=== PATIENT | female | born 1960 | race Caucasian/White ===

== ENCOUNTER → 2017-06-25 | Outpatient (CLI) | payer MEDICAID ==
[~2017-06-25] MED LIST: ASPIRIN 81MG TA81 MG PO; AUGMENTIN1 TA2 PO; BUSPIRONE HCL10 MG PO; CETIRIZINE HCL10 MG PO; CIPRO 500MG TA500 MG PO; CLOPIDOGREL75 MG PO; FLOVENT DI50 MCG/ACT IH; FLUOXETINE20 MG PO; HYDROCHLOROTH12.5 M1 PO; ISOSORBIDE DINI30 MG PO; KLOR-CON M2020 MEQ PO; LIPITOR80 MG PO; PANTOPRAZOLE SO40 MG PO; PRAMIPEXOLE D0.25 MG PO; PREDNISONE 20MG20 MG PO; TESSALON PERLE100 MG PO; TIZANIDINE HCL 44 MG PO
[2017-06-25 13:45] LABS: BUN 7 mg/dL (7-18)
[2017-06-25 14:02] LABS: GFR (ESTIMATED) 87 ML/MIN (59-)
== END ==
LOC: LAB 13:06
PROVIDERS: Internal Medicine Cardiovascular Disease
DX: I65.23 Occlusion and stenosis of bilateral carotid arteries (principal); I10 Essential (primary) hypertension; E78.5 Hyperlipidemia, unspecified; I63.9 Cerebral infarction, unspecified; R06.09 Other forms of dyspnea; Z82.49 Family history of ischemic heart disease and other diseases of the circulatory system; Z72.0 Tobacco use

== ENCOUNTER 2017-08-24 21:04 | Emergency (ER) | payer MEDICAID ==
[~2017-08-24] VITALS: Ht 162.6 cm; Wt 86.2 kg
--- NOTE | 2017-08-24 21:25 | Emergency Room Report ---
History of Present Illness Time Seen by [id number] Presenting Problem in Triage Pt arrived:Walked Presenting Problem:LEFT ANKLE PAIN AND SWELLING WITH BRUISING, STATES SHE WOKE UP THIS MORNING AND NOTICED, DID NOT HAVE WHEN SHE WENT TO BED. Onset of symptoms date/time:08/2302/04/800 or onset unknown for: Treatment Prior to Arrival: CLINICAL INSTRUCTOR Provided by: Sepsis Risk Assessment: Temp: 98.1 B/P: 141/81 MAP: 101 Pulse: 68 Resp: 18 Recent fever? N Clinical Suspician of Infection? N Mental Status: 1 - Regular (Normal Baseline) Sepsis Risk:Low Sepsis Risk Have you (or family members/close friends) recently traveled outside the [place]? N If Yes, where/when: Have you had exposure to infectious disease within the past month? N TB? Other? Specify: Comment The patient complains of bruising and swelling of her LEFT ankle and LEFT foot. She says she went to bed last night feeling fine, with no bruising or swelling and woke up this morning with bruising and swelling on the lateral aspect of her ankle and a small bruise in the base of her second toe. She recalls no trauma. She says she was able to ambulate well today, but laying in bed tonight it began throbbing up to her knee. She is concerned about a possible blood clot. She does not have a history of thromboembolic disease. She has been evaluated for chest pain recently, had a cardiac cath, accessed through her RIGHT wrist, about a month ago. She says she has a 40 percent blockage and is being treated medically. She is on aspirin and Plavix. She also has a history of chronic obstructive pulmonary disease and has chronic shortness of breath and dyspnea on exertion. ALLERGIES Coded Allergies: alteplase (SWELLING 07/23/16) pregabalin (From LYRICA) (DIZZINESS 07/23/16) shrimp (10/13/16) Home Medications Active Scripts BENZONATATE (Benzonatate) 100 MG PO TID #15 CAP Prov: 10/13/16 Reported Medications ASPIRIN (Aspirin) 81 MG PO DAILY TIZANIDINE HCL (Tizanidine Hcl 4 Mg Tablet) 4 MG PO PRN PRN PAIN Buspirone Hcl (Buspirone 10MG) 7.5 MG PO BID Pantoprazole Sodium (Pantoprazole 40MG) 40 MG PO DAILY CETIRIZINE HCL (Cetirizine 10MG) 10 MG PO DAILY Fluoxetine Hcl (Fluoxetine 20MG) 40 MG PO DAILY Isosorbide Dinitrate 30 MG PO DAILY Atorvastatin Calcium (Atorvastatin) 40 MG PO DAILY Potassium Chloride (Klor-Con M20) 10 MEQ PO DAILY CLOPIDOGREL BISULFATE (Clopidogrel 75MG) 75 MG PO DAILY Fluticasone Propionate (Flovent Diskus 50MCG) 2 PUFF IH BID History Medical History General CAD? No Angina: No AK: No Hypertension? Yes Hyperlipidemia? Yes CHF? No DVT? No PE? No COPD? Yes Asthma? Yes Anemia? No GERD? Yes Gastric ulcers? No GI Bleed? No Hernia? No Thyroid Problems? No Hypothyroidism? No CVA? Yes Seizures? No Diabetes? No Renal Insuffiency? No End Stage Renal Disease? No UTI? No Stones? No BPH? No GB Disease: No Nephritic Syndrome? No Asplenia? No Hepatitis? No Sickle Cell Disease? No Arthritis? No Migraines? No Cataracts? No Glaucoma? No MRSA? No HIV? No TB? No Anxiety? No Depression? No Cancer? No More? 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 LMP N/A Family History Family Hx Diabetes No CAD No Hypertension No Hyperlipidemia No Cancer No TB No Social History Smoking Hx Smoker: Current Every Day Smoker Tobacco: Yes Type Cigarettes Packs/day 1 1/2 - 2 Packs Alcohol Alcohol: No Review of Systems All Other Systems Reviewed and Negative Respiratory see HPI, shortness of breath Cardiovascular see HPI, chest pain Musculoskeletal see HPI, joint pain Physical Exam Vital Signs Vital Signs Date Time Temp Pulse Resp B/P Pulse O2 O2 Flow FiO2 Ox Delivery Rate 08/24 2108 98.1 68 18 141/81 96 General Appearance no apparent distress Respiratory Status No: respiratory distress. Cardiovascular normal peripheral pulses Extremities purple ecchymosis around her LEFT lateral malleolus. Mild edema in anterior to her lateral malleolus in the area of the anterior talofibular ligament. No cords., small 1 CM diameter ecchymosis at the base of her second toe, which is nontender. Toes are normal in color, normal capillary refill, sensation, and warmth., normal pulses, capillary refill, and sensation., no calf tenderness. No cords of the leg or calf. edema is isolated to the area of ecchymosis around the lateral malleolus. There is no generalized edema of the leg, ankle, or foot. Neurologic alert, no motor/sensory deficits Medical Decision Making LABS/Meds/Orders Pt receiving controlled substance in ED? No Results/Orders Orders Procedure Date/time Status ANKLE-LT-3 VIEWS 08/24 2123 Active XRAY/CT/US XRAY/CT/US XRAY ankle Comment X-ray interpreted by Donnie Mujica M.D.: old appearing ossicle at the talonavicular joint on lateral view. Heel spur. No fracture seen. Progress - The patient has ecchymosis and edema which appears traumatic. I do not suspect DVT. Symptoms are classic for an ankle sprain, likely from some unrecognized minor injury. Departure Departure Disposition DC Home or Self Care(routine) Clinical Impression Primary Impression: Ankle bruise Qualifiers: Encounter type: initial encounter Laterality: left Qualified Code: S90.02XA - Contusion of left ankle, initial encounter Secondary Impressions: Ankle edema Condition STABLE Referrals NILAY CHAVEZ (Family) Patient Instructions DI for Hematoma (Bruise) Additional Instructions Ice and elevate for swelling and pain. Tylenol or ibuprofen as needed. Follow-up with primary care physician if increasing swelling or pain. ED Critical Care Critical Care No at [id number]
[2017-08-24 22:29] VITALS: BP 140/66
--- NOTE | 2017-08-25 06:29 | RADIOLOGY REPORT PS360 ---
ANKLE-LT-3 VIEWS HISTORY: SWELLING, PAIN ORDERING PHYSICIAN: Donnie Mujica MD PATIENT AGE: 56 years COMPARISON: None FINDINGS: Small bony density noted at the dorsal and proximal aspect of the navicular and may be due to old avulsion injury versus accessory center of ossification. The joint space is well-preserved. Note obstructive process. No acute findings. Small calcaneal spur. IMPRESSION: No acute finding. Please see above
== END 2017-08-24 22:32 | disposition home or self-care (01) ==
LOC: ER 21:04
DX: S90.02XA Contusion of left ankle, initial encounter (principal); F17.210 Nicotine dependence, cigarettes, uncomplicated; J44.9 Chronic obstructive pulmonary disease, unspecified; Z88.8 Allergy status to other drugs, medicaments and biological substances; Z79.82 Long term (current) use of aspirin; I10 Essential (primary) hypertension; E78.5 Hyperlipidemia, unspecified; K21.9 Gastro-esophageal reflux disease without esophagitis

== ENCOUNTER → 2017-08-25 | Outpatient (CLI) | payer MEDICAID | LOC: RT 13:48 | DX: R06.00 Dyspnea, unspecified (principal); I20.8 Other forms of angina pectoris; I10 Essential (primary) hypertension; E78.5 Hyperlipidemia, unspecified; Z72.0 Tobacco use; G47.33 Obstructive sleep apnea (adult) (pediatric) ==

== ENCOUNTER 2017-09-06 19:31 | Emergency (ER) | payer MEDICAID ==
[~2017-09-06] VITALS: Ht 165.1 cm; Wt 83.9 kg
--- OUTSIDE RECORDS SUMMARY | 2017-09-06 19:34 | External Medical Summary Rpt | CCD ---
Author Author [employer] Organization [employer] Address Unknown Phone Unavailable Purpose Continuity of Care Document - through 2016
--- OUTSIDE RECORDS SUMMARY | 2017-09-06 19:34 | External Medical Summary Rpt | CCD ---
Author Author , DANIELLA BREWER Address Unknown Phone [email or web address] Purpose Continuity of Care Document - 02-13-2017 through 2016 Problems Code Diagnosis DOS Provider Status F17.210 NICOTINE 07-02-2017 DEPENDENCE, CIGARETTES, UNCOMPLICAT ED I10 ESSENTIAL 07-02-2017 (PRIMARY) HYPERTENSIO N M25.462 EFFUSION, 07-02-2017 LEFT KNEE S80.02XA CONTUSION 07-02-2017 OF LEFT KNEE, INITIAL ENCOUNTER S89.91XA UNSPECIFIED 07-02-2017 INJURY OF RIGHT LOWER LEG, INITIAL ENCOUNTER W19.XXXA UNSPECIFIED 07-02-2017 FALL, INITIAL ENCOUNTER Z79.82 MCFP 07-02-2017 (CURRENT) USE OF ASPIRIN Z79.899 OTHER LONG 07-02-2017 TERM (CURRENT) DRUG THERAPY 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), AND CEREBRAL INFARCTION WITHOUT RESIDUAL DEFICITS E11.9 TYPE 2 05-14-2017 DIABETES MELLITUS WITHOUT COMPLICATIO NS E78.5 HYPERLIPIDE 05-14-2017 LUKE, UNSPECIFIED F32.9 MAJOR 05-14-2017 DEPRESSIVE DISORDER, SINGLE EPISODE, UNSPECIFIED G25.81 RESTLESS 05-14-2017 LEGS SYNDROME J32.0 CHRONIC 05-14-2017 MAXILLARY SINUSITIS J32.1 CHRONIC 05-14-2017 FRONTAL SINUSITIS J44.9 CHRONIC 05-14-2017 OBSTRUCTIVE PULMONARY DISEASE, UNSPECIFIED K21.9 GASTRO-ESOP 05-14-2017 HAGEAL REFLUX DISEASE WITHOUT ESOPHAGITIS M19.90 UNSPECIFIED 05-14-2017 OSTEOARTHRI TIS, UNSPECIFIED SITE G43.909 MIGRAINE, 04-21-2017 UNSPECIFIED , NOT INTRACTABLE , WITHOUT STATUS MIGRAINOSUS R51 HEADACHE 04-21-2017 Z88.8 ALLERGY 04-21-2017 STATUS TO OTHER DRUGS, MEDICAMENTS AND BIOLOGICAL SUBSTANCES STATUS J01.01 ACUTE 02-24-2017 RECURRENT MAXILLARY SINUSITIS M54.9 DORSALGIA, 02-13-2017 UNSPECIFIED Z91.81 HISTORY OF 02-13-2017 FALLING J40 BRONCHITIS, NOT SPECIFIED ACUTE OR CHRONIC M25.473 EFFUSION, UNSPECIFIED ANKLE S90.00XA CONTUSION OF UNSPECIFIED ANKLE, INITIAL ENCOUNTER Results Labs Lab Lab Date Result Refere Interp Status Commen Order Detail nces retati t Range on CBC w auto diff (08-05-2017 07:50) Automat = 0.0 0-0.2 complet ed 017 K/MM3 ed blood 07:50 basophi l count (count/ vo Baso % = 0.6 % 0.1-2.0 complet 017 ed 07:50 Automat = 0.1 0.0-0.4 complet ed 017 K/mm3 ed blood 07:50 eosinop hil count Automat = 1.5 % 0.1-12. complet ed 017 0 ed blood 07:50 eosinop hils/10 0 leukocy t Blood = 3.3 1.8-7.8 complet granulo 017 K/mm3 ed cytes 07:50 automat ed count (numb Granulo = 53.4 37.0-80 complet cyte 017 % .0 ed percent 07:50 age Blood = 36.1 37.0-47 complet hematoc 017 % .0 ed rit 07:50 (volume fractio n) Blood = 11.9 12.2-16 complet hemoglo 017 g/dL .2 ed bin 07:50 measure ment (mass/v olum Absolut = 2.2 0.7-4.5 complet e 017 K/mm3 ed lymphoc 07:50 yte count Lymphoc = 35.9 10-50.0 complet yte 017 % ed count, 07:50 blood, automat ed Mean = 27.0 27-31.2 complet corpusc 017 pg ed ular 07:50 hemoglo bin (MCH) determ Automat = 33.0 31.8-35 complet ed 017 g/dl .4 ed erythro 07:50 cyte mean corpusc ular h Automat = 81.8 82.2-97 complet ed 017 fl .8 ed erythro 07:50 cyte mean corpusc ular v Absolut = 0.5 0.1-1.0 complet e 017 K/mm3 ed monocyt 07:50 e count Bledsoe % = 8.6 % 1.7-9.3 complet 017 ed 07:50 Automat = 8.0 7.4-10. complet ed 017 fl 4 ed blood 07:50 platele t mean volume brittaney Blood = 237 142-424 complet platele 017 K/mm3 ed t count 07:50 Red = 4.42 4.2-5.4 complet blood 017 M/mm3 ed cell 07:50 count Automat = 13.5 11.5-17 complet ed 017 % .5 ed erythro 07:50 cyte distrib ution width Blood = 6.1 4.8-10. complet leukocy 017 K/MM3 8 ed latrice 07:50 count (number /volume ) Basic metabolic panel (08-05-2017 07:50) Serum = 13 7-18 complet or 017 mg/dL ed plasma 07:50 urea nitroge n measure men Serum = 8.8 8.5-10. complet or 017 mg/dL 1 ed plasma 07:50 calcium measure ment (mas Serum = 102 98-107 complet or 017 mmoL/L ed plasma 07:50 chlorid e measure ment (mo Carbon = 33 21.0-32 complet dioxide 017 mmoL/L .0 ed 07:50 measure ment Serum = 0.7 0.55-1. complet or 017 mg/dL 02 ed plasma 07:50 creatin ine measure ment ( Estimat = 87 59- complet ed 017 ML/MIN ed glomeru 07:50 lar filtrat ion rate (GF Comment: REFERENCE RANGE: >60 ML/MIN/1.73 SQUARE METERS Comment: If this patient is -German, then multiply the Comment: result by 1.210. Serum = 99 74-106 complet or 017 mg/dL ed plasma 07:50 glucose measure ment (mas Serum = 3.6 3.5-5.1 complet potassi 017 mmoL/L ed um 07:50 measure ment Serum 08-05-2 = 140 136-145 complet sodium 017 mmoL/L ed measure 07:50 ment
--- OUTSIDE RECORDS SUMMARY | 2017-09-06 19:34 | External Medical Summary Rpt | CCD ---
Author Author , DANIELLA BREWER Address Unknown Phone [email or web address] Purpose Continuity of Care Document - 02-13-2017 through 2016 Problems Code Diagnosis DOS Provider Status F17.210 NICOTINE 07-02-2017 DEPENDENCE, CIGARETTES, UNCOMPLICAT ED I10 ESSENTIAL 07-02-2017 (PRIMARY) HYPERTENSIO N M25.462 EFFUSION, 07-02-2017 LEFT KNEE S80.02XA CONTUSION 07-02-2017 OF LEFT KNEE, INITIAL ENCOUNTER S89.91XA UNSPECIFIED 07-02-2017 INJURY OF RIGHT LOWER LEG, INITIAL ENCOUNTER W19.XXXA UNSPECIFIED 07-02-2017 FALL, INITIAL ENCOUNTER Z79.82 HALF-WAY 07-02-2017 (CURRENT) USE OF ASPIRIN Z79.899 OTHER [...] 017 K/mm3 ed monocyt 07:50 e count Coles % = 8.6 % 1.7-9.3 complet 017 [...] SQUARE METERS Comment: If this patient is -Micronesian, then multiply the Comment: result by 1.210. Serum = 99 74-106 complet or 017 mg/dL ed plasma 07:50 glucose measure ment (mas Serum = 3.6 3.5-5.1 complet potassi 017 mmoL/L ed um 07:50 measure ment Serum 08-05-2 = 140 136-145 complet sodium 017 mmoL/L ed measure 07:50 ment
--- OUTSIDE RECORDS SUMMARY | 2017-09-06 19:34 | External Medical Summary Rpt | CCD ---
Author Author , DANIELLA BREWER Address Unknown Phone [email or web address] Support Name Relationship Address Phone JENNI, Next Of Kin Unknown Unavailable RANDELL Immunization Name Date Rout CVX Reac Dose Comm Prov Is Faci e tion ent ider Refu lity Give sed n Flu 10-0 Intr 0.5 Hist CVS3 No CVS3 MDCK 2-20 amus mL oric 016 016 17 cula al Quad r Info rmat P-Fr ion ee - Inj Sour ce Unsp ecif ied
--- OUTSIDE RECORDS SUMMARY | 2017-09-06 19:34 | External Medical Summary Rpt | CCD ---
Author Author , DANIELLA BREWER Address Unknown Phone [email or web address] Support Name Relationship Address Phone JENNI, Next [...]
--- OUTSIDE RECORDS SUMMARY | 2017-09-06 19:35 | External Medical Summary Rpt ---
Author Author DANIELLA Dunn, DANIELLA [employer] Organization [employer] Address Unknown Phone Unavailable Results Basic metabolic panel in Blood Observa Value Referen Units Interpr Notes Date tion ce etation Range Urea 7 - 18 mg/dL Normal No Aug 05 nitrogen informati 2016 7:50 [Mass/vol on in AM ume] in source Serum or data Plasma Calcium 8.5 - mg/dL Normal No Aug 05 [Mass/vol 10.1 informati 2016 7:50 ume] in on in AM Serum or source Plasma data Chloride 98 - 107 mmoL/L Normal No Aug 05 [Moles/vo informati 2016 7:50 lume] in on in AM Serum or source Plasma data Carbon 21.0 - mmoL/L High No Aug 05 dioxide, 32.0 informati 2016 7:50 total on in AM [Moles/vo source lume] in data Serum or Plasma Creatinin 0.55 - mg/dL Normal No Aug 05 e 1.02 informati 2016 7:50 [Mass/vol on in AM ume] in source Serum or data Plasma Estimated 59- ML/MIN No REFERENCE Aug 05 informati RANGE: 2017 7:50 glomerula on in >60 AM r source ML/MIN/1. filtratio data 73 SQUARE n rate METERSIf (GF this patient is -A merican, then multiply theresult by 1.210. Glucose 74 - 106 mg/dL Normal No Aug 05 [Mass/vol informati 2016 7:50 ume] in on in AM Serum or source Plasma data Potassium 3.5 - 5.1 mmoL/L Normal No Aug 05 informati 2016 7:50 [Moles/vo on in AM lume] in source Serum or data Plasma Sodium 136 - 145 mmoL/L Normal No Aug 05 [Moles/vo informati 2016 7:50 lume] in on in AM Serum or source Plasma data CBC W Auto Differential panel in Blood Observa Value Referen Units Interpr Notes Date tion ce etation Range Basophils 0 - 0.2 K/MM3 Normal No Aug 05 informati 2016 7:50 [#/volume on in AM ] in source Blood by data Automated count Basophils 0.1 - 2.0 % Normal No Aug 05 / informati 2016 7:50 leukocyte on in AM s in source Blood by data Automated count Eosinophi 0.0 - 0.4 K/mm3 Normal No Aug 05 ls informati 2016 7:50 [#/volume on in AM ] in source Blood by data Automated count Eosinophi 0.1 - % Normal No Aug 05 ls/100 12.0 informati 2016 7:50 leukocyte on in AM s in source Blood by data Automated count Granulocy 1.8 - 7.8 K/mm3 Normal No Aug 05 latrice informati 2016 7:50 [#/volume on in AM ] in source Blood by data Automated count Granulocy 37.0 - % Normal No Aug 05 latrice/100 80.0 informati 2016 7:50 leukocyte on in AM s in source Blood by data Automated count Hematocri 37.0 - % Low No Aug 05 t [Volume 47.0 informati 2016 7:50 on in AM Fraction] source of Blood data Hemoglobi 12.2 - g/dL Low No Aug 05 n 16.2 informati 2016 7:50 [Mass/vol on in AM ume] in source Blood data Lymphocyt 0.7 - 4.5 K/mm3 Normal No Aug 05 es informati 2016 7:50 [#/volume on in AM ] in source Unspecifi data ed specimen by Automated count Lymphocyt 10 - 50.0 % Normal No Aug 05 es informati 2016 7:50 [#/volume on in AM ] in source Unspecifi data ed specimen by Automated count Erythrocy 27 - 31.2 pg Normal No Aug 05 te mean informati 2016 7:50 corpuscul on in AM ar source hemoglobi data n [Entitic mass] Erythrocy 31.8 - g/dl Normal No Aug 05 te mean 35.4 informati 2016 7:50 corpuscul on in AM ar source hemoglobi data n concentra tion [Mass/vol ume] by Automated count Erythrocy 82.2 - fl Low No Aug 05 te mean 97.8 informati 2016 7:50 corpuscul on in AM ar volume source [Entitic data volume] by Automated count Monocytes 0.1 - 1.0 K/mm3 Normal No Aug 05 inform2016 7:50 [#/volume on in AM ] in source Blood by data Automated count Monocytes 1.7 - 9.3 % Normal No Aug 05 / informati 2016 7:50 leukocyte on in AM s in source Blood by data Automated count Platelet 7.4 - fl Normal No Aug 05 mean 10.4 informati 2016 7:50 volume on in AM [Entitic source volume] data in Blood by Automated count Platelets 142 - 424 K/mm3 Normal No Aug 05 inform2016 7:50 [#/volume on in AM ] in source Blood data Erythrocy 4.2 - 5.4 M/mm3 Normal No Aug 05 latrice informati 2016 7:50 [#/volume on in AM ] in source Amniotic data fluid Erythrocy 11.5 - % Normal No Aug 05 te 17.5 informati 2016 7:50 distribut on in AM ion width source [Entitic data volume] by Automated count Leukocyte 4.8 - K/MM3 Normal No Aug 05 s 10.8 informati 2016 7:50 [#/volume on in AM ] in source Blood data Basic metabolic panel in Blood Observa Value Referen Units Interpr Notes Date tion ce etation Range Urea 7 - 18 mg/dL Normal No Sep 11 nitrogen informati 2016 2:18 [Mass/vol on in PM ume] in source Serum or data Plasma Calcium 8.5 - mg/dL Normal No Sep 11 [Mass/vol 10.1 informati 2017 2:18 ume] in on in PM Serum or source Plasma data Chloride 98 - 107 mmoL/L Normal No Sep 11 [Moles/vo informati 2017 2:18 lume] in on in PM Serum or source Plasma data Carbon 21.0 - mmoL/L Normal No Sep 11 dioxide, 32.0 informati 2016 2:18 total on in PM [Moles/vo source lume] in data Serum or Plasma Creatinin 0.55 - mg/dL Normal No Sep 11 e 1.02 informati 2016 2:18 [Mass/vol on in PM ume] in source Serum or data Plasma Estimated 59- ML/MIN No REFERENCE Sep 11 informati RANGE: 2017 2:18 glomerula on in >60 PM r source ML/MIN/1. filtratio data 73 SQUARE n rate METERSIf (GF this patient is -A merican, then multiply theresult by 1.210. Glucose 74 - 106 mg/dL Normal No Sep 11 [Mass/vol informati 2017 2:18 ume] in on in PM Serum or source Plasma data Potassium 3.5 - 5.1 mmoL/L Normal No Sep 11 informati 2017 2:18 [Moles/vo on in PM lume] in source Serum or data Plasma Sodium 136 - 145 mmoL/L Normal No Sep 11 [Moles/vo informati 2017 2:18 lume] in on in PM Serum or source Plasma data Basic metabolic panel in Blood Observa Value Referen Units Interpr Notes Date tion ce etation Range Urea 7 - 18 mg/dL Normal No Sep 6 nitrogen informati 2017 1:06 [Mass/vol on in PM ume] in source Serum or data Plasma Calcium 8.5 - mg/dL Normal No Sep 6 [Mass/vol 10.1 informati 2017 1:06 ume] in on in PM Serum or source Plasma data Chloride 98 - 107 mmoL/L Normal No Sep 6 [Moles/vo informati 2017 1:06 lume] in on in PM Serum or source Plasma data Carbon 21.0 - mmoL/L Normal No Sep 6 dioxide, 32.0 informati 2017 1:06 total on in PM [Moles/vo source lume] in data Serum or Plasma Creatinin 0.55 - mg/dL Normal No Sep 6 e 1.02 informati 2017 1:06 [Mass/vol on in PM ume] in source Serum or data Plasma Estimated 59- ML/MIN No REFERENCE Sep 6 informati RANGE: 2017 1:06 glomerula on in >60 PM r source ML/MIN/1. filtratio data 73 SQUARE n rate METERSIf (GF this patient is -A merican, then multiply theresult by 1.210. Glucose 74 - 106 mg/dL High No Sep 6 [Mass/vol informati 2017 1:06 ume] in on in PM Serum or source Plasma data Potassium 3.5 - 5.1 mmoL/L Low alert Sep 6 2016 1:06 [Moles/vo CRITICAL PM lume] in RESULTS Serum or Plasma RESU LTS CALLED TO: GERARD Campbell 06/25/17 1403 Katey Valles Sodium 136 - 145 mmoL/L Normal No Sep 6 [David/eliud sanchezati 2017 1:06 lume] in on in PM Serum or source Plasma data
--- NOTE | 2017-09-06 19:51 | Urgent Treatment Center Report ---
History of Present Issue Date/Time Seen by Provider 09/06/17 1950 Visit Reason Pt arrived:Walked Presenting Problem:PT C/O PRODUCTIVE COUGH AND PAIN IN LUNGS WITH BREATHING Location if Accident: Onset of symptoms date/time:/ or onset unknown for:MEDICAL HX UNKNOWN Have you (or family members/close friends) recently traveled outside the [place]? N If Yes, where/when: Have you had exposure to infectious disease within the past month? TB? Other? Specify: Patient state that she has not been feeling well for several days State that she has been having productive cough and pain in her lung area when she takes a deep breath State that she was worried and didn't want to not get seen and treated and it turn into pneumonia ALLERGIES Coded Allergies: alteplase (SWELLING 07/23/16) pregabalin (From LYRICA) (DIZZINESS 07/23/16) shrimp (10/13/16) Home Medications Active Scripts BENZONATATE (Benzonatate) 100 MG PO TID #15 CAP Prov: 10/13/16 Reported Medications ASPIRIN (Aspirin) 81 MG PO DAILY TIZANIDINE HCL (Tizanidine Hcl 4 Mg Tablet) 4 MG PO PRN PRN PAIN Buspirone Hcl (Buspirone 10MG) 7.5 MG PO BID Pantoprazole Sodium (Pantoprazole 40MG) 40 MG PO DAILY CETIRIZINE HCL (Cetirizine 10MG) 10 MG PO DAILY Fluoxetine Hcl (Fluoxetine 20MG) 40 MG PO DAILY Isosorbide Dinitrate 30 MG PO DAILY Atorvastatin Calcium (Atorvastatin) 40 MG PO DAILY Potassium Chloride (Klor-Con M20) 10 MEQ PO DAILY CLOPIDOGREL BISULFATE (Clopidogrel 75MG) 75 MG PO DAILY Fluticasone Propionate (Flovent Diskus 50MCG) 2 PUFF IH BID History Medical History General CAD? No Angina: No [place]: No Hypertension? Yes Hyperlipidemia? Yes CHF? No DVT? No PE? No COPD? Yes Asthma? Yes Anemia? No GERD? Yes Gastric ulcers? No GI Bleed? No Hernia? No Thyroid Problems? No Hypothyroidism? No CVA? Yes Seizures? No Diabetes? No Renal Insuffiency? No UTI? No Stones? No BPH? No GB Disease: No Nephritic Syndrome? No Asplenia? No Hepatitis? No Sickle Cell Disease? No Arthritis? No Migraines? No Cataracts? No Glaucoma? No MRSA? No HIV? No TB? No Anxiety? No Depression? No Cancer? No More? Yes Additional hx: RLS Immunization HX DT/Tetanus 5-10 Years Ago Flu 2015- Flu Season Pneumonia Received In Past Surgical Hx Previous Surgery?Y TONSILS X2 HYSTERECTOMY Family History Family HX Diabetes No CAD No Hypertension No Hyperlipidemia No Cancer No TB No Social History Smoking Hx Smoker: Current Every Day Smoker Tobacco: Yes Type Cigarettes Packs/day 1 1/2 - 2 Packs Alcohol Alcohol: No Review of Systems All Other Systems Reviewed and Negative ENT throat pain. Respiratory cough, denies stridor, wheezing Cardiovascular denies no symptoms reported Physical Exam Vital Signs Vital Signs Date Time Temp Pulse Resp B/P Pulse O2 O2 Flow FiO2 Ox Delivery Rate 09/06 1938 97.9 73 20 138/80 97 General Appearance normal appearance, WD/WN, no apparent distress Respiratory Status Yes: trachea midline, chest symmetrical, non tender chest. No: respiratory distress. Lung Sounds bilateral: decreased breath sounds, wheezing. Cardiovascular normal exam, regular rate/rhythm Neurologic alert, normal exam, oriented x 3 Medical Decision Making LABS/Meds/Orders Pt receiving controlled substance in ED? No Results/Orders Current Medication Orders Sig/Abel Start time Last Medication Dose Route Stop Time Status Admin Azithromycin 500 MG ONCE ONE 09/06 2015 AC PO 09/06 2016 Methylprednisolone 125 MG ONCE ONE 09/06 2000 DC Sodium Succinate IM 09/06 2001 Albuterol/Ipratropium 3 ML ONCE ONE 09/06 1945 DC INH 09/06 1946 Orders Procedure Date/time Status RT REQUEST DUONEB 09/06 1943 Active CHEST(2 VIEWS-NOT PORTABLE) 09/06 1943 Active XRAY/CT/US XRAY/CT/US XRAY chest XR interpretation by reviewed by me Xray Results no infiltrates Comment Dicussed with Dr Manning Progress [facility] Progress Notes Comment Patient state that she feels better after neb treatment and medication patient dc'd home Departure Departure Time of Disposition 2001 Disposition DC Home or Self Care(routine) Clinical Impression Primary Impression: Bronchitis Condition STABLE Patient Instructions Cough, Guaifenesin Additional Instructions * Monitor Temp. Tylenol and/or Ibuprofen as needed. ER if fever is no less than 101 despite alternating Tylenol and Ibuprofen * Encourage fluids, water, Gatorade, powerade, pedialyte if /toddler/or child * Warm salt water gargles for throat irritation *Warm fluids *Sore throat lozenges *Sleep elevated *humidifier or vaporizer Lots of rest Increase fluids, water, Gatorade, powerade *Flonase 2 sprays each nostril daily but may take 2-3 days to notice improvement with it Follow up IMMEDIATELY for new or worsening of symptoms OR no noticeable improvement over the next 48-72 hours. 911 immediately for any life threatening symptoms such as chest pain or difficulty breathing Discharge Counseling Counseled pt/family regarding diagnosis, test results, medications/RX, home care, follow up needs Prescriptions Current Visit Scripts Azithromycin (Zithromycin (Z-HORACE) 250MG Tab) 250 MG PO DAILY #6 TAB TAKE TWO (2) TABLETS ON DAY 1, THEN ONE (1) TABLET DAY #2 THRU #5 Albuterol Sulfate (Proair Hfa) 2 PUFFS IH QID #1 INH Methylprednisolone (Medrol Dose Horace) 4 MG PO UD #1 HORACE TAKE DIRECTED ON PACKAGING Guaifenesin (Mucinex) 1,200 MG PO BID #20 TER at 2006
[2017-09-06] MEDS ORDERED: MUCINEX1200 MG PO (20:02)
[2017-09-06] MEDS ORDERED: PROAIR HFA0.09 MG/AC IH (20:02)
[2017-09-06] MEDS ORDERED: MEDROL 4MG. DOSE4 MG PO (20:02)
[2017-09-06] MEDS ORDERED: ZITHROMAX Z PA250 MG PO (20:02)
[2017-09-06 20:14] VITALS: BP 138/80
--- NOTE | 2017-09-07 18:54 | RADIOLOGY REPORT PS360 ---
CHEST(2 VIEWS-NOT PORTABLE) Ordering Physician: JAVIER NOLASCO APRN Patient Age: 56 years: Female HISTORY: PRODUCTIVE COUGH, PAIN WITH BREATHINGproductive cough 3 days with pain with breathing. TECHNIQUE: Smoker 30 years PA and lateral chest COMPARISON :Compared to October 13, 2016. FINDINGS No appreciable change is previous study. Nothing definitely acute. No focal pneumonia. Upper normal markings at the medial left base I believe are related and similar to previous studies. The heart mckenna and mediastinal structures appear satisfactory. Slight coarsening of central markings reflecting mild chronic changes although cannot exclude a very subtle superimposed bronchitis currently. No pleural effusion. No pneumothorax. Chest wall intact. Heart upper normal in size with mckenna and mediastinal structures satisfactory. T-spine unchanged. IMPRESSION: Stable chest with nothing definitely acute. Minor chronic changes. Minor comments intact
== END 2017-09-06 20:14 | disposition home or self-care (01) ==
LOC: UTC 19:31
DX: J20.9 Acute bronchitis, unspecified (principal); Z79.82 Long term (current) use of aspirin; I10 Essential (primary) hypertension; E78.5 Hyperlipidemia, unspecified; J44.9 Chronic obstructive pulmonary disease, unspecified; K21.9 Gastro-esophageal reflux disease without esophagitis; F17.210 Nicotine dependence, cigarettes, uncomplicated; G25.81 Restless legs syndrome

== ENCOUNTER 2017-09-10 18:54 | Emergency (ER) | payer MEDICAID ==
[~2017-09-10] VITALS: Ht 165.1 cm; Wt 86.2 kg
[~2017-09-10 18:54] MED LIST changes: +MEDROL 4MG. DOSE4 MG PO; +MUCINEX1200 MG PO; +PROAIR HFA0.09 MG/AC IH; +ZITHROMAX Z PA250 MG PO
--- OUTSIDE RECORDS SUMMARY | 2017-09-10 19:07 | External Medical Summary Rpt | CCD ---
Author Author , DANIELLA Organization DANIELLA Address Unknown Phone [email or web address] Care Team Providers Care Medical Researcher Name Role Phone [facility], Unavailable Unavailable [facility] STARLA GRESHAM MD, PSC, Unavailable Unavailable STARLA GRESHAM MD, PSC [facility] Unavailable Unavailable [facility], [facility] PHYS[facility]IAN Unavailable Unavailable PRACTICE L, [facility] & Unavailable Unavailable SLEEP CONSU, [facility] & SLE[facility], [facility]available Unavailable [facility] Unavailable [facility]available HOSPITA, [facility] Unavailable [facility] Unavailable Unavailable INC, [facility], Unavailable Unavailable [facility] Unavailable [facility]available [facility]AT, [facility] KEPLINGER, KEPL[facility] Unavailable Unavailable [facility] Unavailable Unavailable [facility], [facility] Unavailable Unavailable SERV HEPATOLOGIST R, [facility] SHANELL YOO MD Unavailable Unavailable CONSULTING SRV, SHANELL YOO MD CONSULTING [facility] Unavailable Unavailable EQUIPME, [facility] Unavailable Unavailable EMERGENCY PHYS, [facility] TATI ANG, Unavailable Unavailable DUFFY ANG Purpose Continuity of Care Document - 11-08-2014 through 2016 Problems Code Diagnosis DOS Provider Status M7541 IMPINGEMENT 08-18-2017 [facility] OF RIGHT ASSOCIAT SHOULDER M7542 IMPINGEMENT 08-18-2017 [facility]THOPEDIC OF LEFT ASSOCIAT SHOULDER I208 OTHER FORMS 08-05-[address] [facility] [place] GROUP [id number] ASHD [place] N[place] 08-05-[address] [facility] COR ART PHYSICIANS W/OTH FORMS GROUP ANGINA PECTORIS R9439 ABNORMAL 08-05-[address] [facility] RESULT OTH PHYSICIANS CARDIOVASCU GROUP LR FUNCTION STUDY J320 CHRONIC 07-23-2017 [facility] SINUSITIS PRACTICE L F17.210 NICOTINE 07-02-2017 DEPENDENCE, CIGARETTES, UNCOMPLICAT ED I10 ESSENTIAL 07-02-2017 (PRIMARY) HYPERTENSIO N M25.462 EFFUSION, 07-02-2017 LEFT KNEE S80.02XA CONTUSION 07-02-2017 OF LEFT KNEE, INITIAL ENCOUNTER S89.91XA UNSPECIFIED 07-02-2017 INJURY OF RIGHT LOWER LEG, INITIAL ENCOUNTER W19.XXXA UNSPECIFIED 07-02-2017 FALL, INITIAL ENCOUNTER Z79.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 07-02-2017 (CURRENT) USE OF ASPIRIN Z79.899 OTHER LONG 07-02-2017 TERM (CURRENT) DRUG THERAPY 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), AND CEREBRAL INFARCTION WITHOUT RESIDUAL DEFICITS Q93946 PAIN IN 07-01-2017 [facility] [place] [facility] E785 HYPERLIPIDE 06-30-2017 [facility] UNSPECIFIED INC I10 ESSENTIAL 06-30-2017 [facility] HYPERTENSIO INC N I639 CEREBRAL 06-30-2017 [facility]CTION [facility] UNSPECIFIED INC I6523 OCCLUSION & 06-30-2017 [facility]IS [facility] BILATERAL INC CAROTID ARTERIES R0609 OTHER FORMS 06-30-2017 [facility]SP[facility]A [facility] INC Z720 TOBACCO USE 06-30-2017 [facility] INC Z8249 FAMILY HX 06-30-2017 [facility]SCHEMIC [facility] HRT DZ OTH INC DZ CIRC SYSTEM J449 CHRONIC 06-16-[address] [facility] OBSTRUCTIVE PHYSICIANS PULMONARY GROUP DISEASE UNS K219 GASTRO-ESOP 06-16-[address] [facility] H REFLUX PHYSICIANS DISEASE GROUP WITHOUT ESOPHAGITIS G2581 RESTLESS 06-09-2017 [facility] SYNDROME R51 HEADACHE 06-09-2017 [facility] E559 VITAMIN D 06-06-2017 [facility] DEFICIENC[facility] UNSPECIFIED HOLDINGS E784 OTHER 06-06-2017 [facility] HYPERLIPIDE [facility]ILL[facility] HOLDINGS R279 UNSPECIFIED 05-28-2017 SHANELL FREDO HOLLAND OF COORDINATIO CONSULTING N SRV G4710 HYPERSOMNIA 05-27-2017 [facility] LAR & SLEEP UNSPECIFIED CONSU J0101 ACUTE 05-21-2017 [facility] RECURRENT PHYSICIAN MAXILLARY PRACTICE L SINUSITIS Z09 ENC F/U 05-21-2017 [facility] EXAM AFTR PHYSICIAN CMPL TX OTH PRACTICE L THAN LUCINA NEOPLSM E11.9 TYPE 2 05-14-2017 DIABETES MELLITUS WITHOUT COMPLICATIO NS E78.5 HYPERLIPIDE 05-14-2017 [facility], UNSPECIFIED F32.9 MAJOR 05-14-2017 DEPRESSIVE DISORDER, SINGLE EPISODE, UNSPECIFIED G25.81 RESTLESS 05-14-2017 LEGS SYNDROME J32.0 CHRONIC 05-14-2017 MAXILLARY SINUSITIS J32.1 CHRONIC 05-14-2017 FRONTAL SINUSITIS J44.9 CHRONIC 05-14-2017 OBSTRUCTIVE PULMONARY DISEASE, UNSPECIFIED K21.9 GASTRO-ESOP 05-14-2017 [facility] REFLUX DISEASE WITHOUT ESOPHAGITIS M19.90 UNSPECIFIED 05-14-2017 OSTEOARTHRI TIS, UNSPECIFIED SITE J321 CHRONIC 05-13-2017 [facility] FRONTAL PHYSICIAN SINUSITIS PRACTICE L J329 CHRONIC 05-13-2017 [facility] UNSPECIFIED R918 OTHER 05-07-2017 [facility] NONSPECIFIC SERV ABNORMAL [facility] FINDING OF LUNG FIELD Z122 ENCOUNTER 05-07-2017 [facility] NEOPLAS[facility] RESPIR ORGANS E70789 PERSONAL 05-07-2017 [facility] HISTORY OF [employer] NICOTINE [employer] Sales DEPENDENCE R300 DYSURIA 04-29-2017 [facility] HOLDINGS G43.909 MIGRAINE, 04-21-2017 UNSPECIFIED , NOT INTRACTABLE , WITHOUT STATUS MIGRAINOSUS R51 HEADACHE 04-21-2017 Z88.8 ALLERGY 04-21-2017 STATUS TO OTHER DRUGS, MEDICAMENTS AND BIOLOGICAL SUBSTANCES STATUS G25985 MIGRAINE 04-18-2017 [facility] UNS NOT N EMERGENCY INTRACT W/O PHYS STATUS MIGRAINOSUS J411 MUCOPURULEN 04-14-2017 [facility] CHRONIC HOME BRONCHITIS MEDICAL EQUIPME B80493 AC 04-08-2017 [facility]PP[facility] OM W/O RUPT EAR DRUM RECUR RT EAR J0140 ACUTE 04-08-2017 [facility] PANSINUSITI CLINIC S UNSPECIFIED R0602 SHORTNESS 03-25-2017 [facility] BREATH SERV FOUNDATION Z23 ENCOUNTER 03-25-2017 [facility] FOR SERV IMMUNIZATIO FOUNDATION N J01.01 ACUTE 02-24-2017 RECURRENT MAXILLARY SINUSITIS J3489 OTHER 02-21-2017 [facility] SPECIFIED RADIOLOGY DISORDERS NOSE AND NASAL SINUSES C36089 SPONDYLOSIS 02-18-2017 [facility] MYELOPATH/R INC ADICULOPATH Y LUMB RGN M5136 OT 02-18-2017 ESTHER HERNÁNDEZ MD, PSC RAL DISC DEGEN LUMBAR REGION M54.9 DORSALGIA, 02-13-2017 UNSPECIFIED Z91.81 HISTORY OF 02-13-2017 FALLING M546 PAIN IN 02-12-2017 [facility] [place] [facility]ACIC [facility] SPINE M549 DORSALGIA 02-12-[address] [place] [address] [facility] Z9181 HISTORY OF 02-12-2017 [facility] M4696 UNS 01-21-2017 [facility] INFLAMMATOR [facility] Y INC SPONDYLOPAT HY LUMBAR REGION F28593 OTHER 01-21-2017 [facility] SPONDYLOSIS [facility] LUMBAR INC REGION J0191 ACUTE 01-07-2017 [facility] RECURRENT [facility] SINUSITIS UNSPECIFIED M461 SACROILIITI 12-24-2016 [facility] S NOT [facility] ELSEWHERE INC CLASSIFIED G4700 INSOMNIA 12-18-[address] [place] [address] [facility] R072 PRECORDIAL 12-18-[address] [facility] R5383 OTHER 12-18-[address] [place] [facility] X49499 OTHER LONG 12-18-[address] [place] [address]M [facility] DRUG THERAPY Z862 PERSONAL HX 12-18-2016 [facility] BLOOD&BLOOD [facility] FORM ORGN IMMUNE MECH J438 OTHER 12-16-2016 [facility] EMPHYSEMA LAR & SLEEP CONSU R799 ABNORMAL 12-10-2016 [facility] FINDING OF [facility] BLOOD HOLDINGS CHEMISTRY UNSPECIFIED R05 COUGH 12-04-2016 [facility] [place] [facility] R0689 OTHER 12-04-2016 [facility] ABNORMALITI [facility]IC ES OF BREATHING M4726 OT 11-18-2016 [facility] SPONDYLOSIS [facility] INC W/RADICULOP ATHY LUMBAR REGION J40 BRONCHITIS 11-15-2016 [facility] NOT HOME SPECIFIED MEDICAL ACUTE OR EQUIPME CHRONIC H5203 HYPERMETROP 11-13-2016 MAT IA BILATERAL H524 PRESBYOPIA 11-13-2016 MAT J0190 ACUTE 10-15-2016 [facility] SINUSITIS [facility]INIC UNSPECIFIED J209 ACUTE 10-15-2016 [facility] BRONCHITIS [facility]INIC UNSPECIFIED J440 COPD WITH 10-13-2016 [facility] ACUTE LOWER [facility] INC RESPIRATORY INFECTION M5116 INTERVERTEB 09-30-2016 [facility] RAL DISC [facility] D/O INC W/RADICULOP ATHY LUMB RGN M5410 RADICULOPAT 08-06-2016 [facility] HY SITE [facility] UNSPECIFIED INC M5416 RADICULOPAT 07-23-2016 [facility] HY LUMBAR [facility] REGION INC M545 LOW BACK 07-23-2016 FAROOQ HERNÁNDEZ MD, PSC P39810 OTHER 06-28-2016 [facility] SPECIFIED [facility] DISORDERS RIGHT KNEE R2241 LOCALIZED 06-28-2016 [facility] [place] SWELLING RADIOLOGY MASS & LUMP RIGHT LOWER LIMB H9203 OTALGIA 06-26-2016 [facility] BILATERAL PHYSICIAN PRACTICE L H608X3 OTHER 06-18-2016 [facility] OTITIS PHYSICIAN EXTERNA PRACTICE L BILATERAL H6983 OTHER SPEC 06-18-2016 [facility] DISORDERS PHYSICIAN EUSTACHIAN PRACTICE L TUBE BILAT H6590 UNSPECIFIED 06-12-2016 [facility] NONSUPPURAT RENETTA OTITIS MEDIA UNS EAR R079 CHEST PAIN 06-11-2016 [facility] UNSPECIFIED [facility] R202 PARESTHESIA 06-06-2016 [facility] OF SKIN NEUROLOGY H6691 OTITIS 06-04-2016 [facility]IA [facility] UNSPECIFIED RIGHT EAR I6930 UNSPECIFIED 05-16-2016 [facility] SEQUELAE NEUROLOGY OF CEREBRAL INFARCTION M2550 PAIN IN 04-25-2016 [facility] UNSPECIFIED [facility] JOINT HOLDINGS O71618 ATHEROSCLER 04-15-2016 [facility] SALMON ART EXT CONSULTING INTERMIT SRV JERILYN BILAT U72733 PAIN IN 04-15-2016 [facility] LEFT LOWER CLINIC LEG R600 LOCALIZED 04-15-2016 [facility] EDEMA [facility]INIC Z8673 PERSONAL HX 04-15-2016 [facility] TIA & CLINIC CEREB INFARCT NO RESID DEFICIT R0789 OTHER CHEST 03-26-2016 [facility] PAIN [facility] HOLDINGS M542 CERVICALGIA 02-20-2016 [facility] COMMUNTIY H[facility]PITA M5481 OCCIPITAL 02-15-2016 [facility] NEURALGIA NEUROLOGY M791 MYALGIA 02-15-2016 [facility] H6090 UNSPECIFIED 02-12-2016 [facility]IS CLINIC EXTERNA UNSPECIFIED EAR H6690 OTITIS 01-17-2016 [facility] UNSPECIFIED UNSPECIFIED EAR H5340 UNSPECIFIED 12-29-2015 [facility] VISUAL ANG FIELD DEFECTS H539 UNSPECIFIED 12-25-2015 [facility] VISUAL COMMUNTIY DISTURBANCE HOSPITA I6502 OCCLUSION 12-25-2015 [facility] AND [facility] STENOSIS OF HOSPITA LEFT VERTEBRAL ARTERY Z1231 ENCOUNTER 12-12-2015 [facility] [place] SCREENING RADIOLOGY MAMMO MALIG NEOPLASM BREAST H30717 UNS ACUTE 12-01-2015 [facility] NONINFECTIV CLINIC E OTITIS EXTERNA LEFT EAR H6692 OTITIS 12-01-2015 [facility]IA [facility] UNSPECIFIED LEFT EAR R062 WHEEZING 12-01-2015 [facility] Z1239 ENCOUNTER 12-01-2015 [facility] OTHER CLINIC SCREENING MALIG NEOPLASM BREAST G4489 OTHER 11-20-2015 [facility] HEADACHE [facility] SYNDROME INC Z760 ENCOUNTER 08-31-2015 [facility] FOR ISSUE CLINIC OF REPEAT PRESCRIPTIO N M722 PLANTAR 08-22-2015 [facility] FASCIAL CLINIC FIBROMATOSI S P92830 PAIN IN 08-19-2015 [facility] [place] RIGHT ANKLE RADIOLOGY O79269 PAIN IN 08-19-2015 [facility] [place] LEFT ANKLE RADIOLOGY B87398 PAIN IN 08-19-2015 [facility] [place] RIGHT FOOT RADIOLOGY G94029 PAIN IN 08-19-2015 [facility] [place] LEFT FOOT RADIOLOGY 31925 UNSPECIFIED 06-27-2015 [facility] CERE[facility]AL [facility] ARTERY [facility] OCCLUSION W/INFARCT 496 CHRONIC 06-27-2015 [facility] AIRWAY SERV OBSTRUCTION FOUNDATION NEC V1254 PERSONAL HX 06-22-2015 [facility] TIA & CI [facility]ITY W/O HOSPITAL RESIDUAL DEFICITS 27773 INSOMNIA 06-15-2015 [facility] UNSPECIFIED [facility]INIC 7840 HEADACHE 06-13-2015 [facility] V571 OTHER 06-13-2015 [facility] PHYSICAL [facility] THERAPY [facility] 7231 CERVICALGIA 05-23-2015 [facility] COMMUNTI[facility] HOSPITA 7238 OTHER 05-16-2015 [facility] SYNDROMES NEUROLOGY AFFECTING CERVICAL REGION 3814 NONSUPPRATV 05-12-2015 [facility] OTITIS [facility] MEDIA NOT HOLDINGS SPEC ACUT/CHRON 7862 COUGH 05-12-2015 [facility] HOLDINGS 78540 VOMITING 05-12-2015 [facility] ALONE [facility] HOLDINGS 44892 DIARRHEA 05-12-2015 [facility] HOLDINGS 22841 OTHER 04-24-2015 [facility] 10277 OTHER 04-24-2015 [facility]CH [facility] V5789 OTHER 04-24-2015 [facility] SPECIFIED COMMUNITY REHABILITAT [facility] ION PROCEDURE OTHER V679 UNSPECIFIED 04-17-2015 [facility] FOLLOW-UP CLINIC EXAMINATION 7820 DISTURBANCE 04-13-2015 [facility] [place] OF SKIN RADIOLOGY SENSATION 72367 UNSPEC 04-12-2015 AIR [facility] HEMIPLEGIA [place] AFFECTING NONDOMINANT SIDE 436 ACUTE BUT 04-12-2015 [facility] ILL-DEFINED AMBULANCE SERV HEPATOLOGIST R CEREBROVASC ULAR DISEASE 7802 SYNCOPE AND 04-12-2015 [facility] COLLAPSE N EMERGENCY PHYS 43317 OTHER 04-12-2015 [facility] [place] NONSPECIFIC RADIOLOGY ABNORMAL FINDING OF LUNG FIELD 9953 ALLERGY 04-12-2015 [facility] UNSPECIFIED N EMERGENCY NOT PHYS ELSEWHERE CLASSIFIED 23495 CRAMP OF 04-10-2015 [facility] LIMB [facility] HOLDINGS V5869 LONG-TERM 04-10-2015 [facility] (CURRENT) [facility] USE OF HOLDINGS OTHER MEDICATIONS 6248 OTH SPEC 03-31-2015 [facility] NONINFLAMMA CLINIC TORY DISORDER VULVA&PERIN EUM 2724 OTHER AND 02-27-2015 [facility] UNSPECIFIED [facility] HOLDINGS HYPERLIPIDE [place] 29139 NAUSEA 02-27-2015 [facility] ALONE [facility] HOLDINGS 35887 OTHER 02-27-2015 [facility] ILL-DEFINED [facility] CONDITIONS HOLDINGS 87592 UNSPECIFIED 02-09-2015 [facility] VIRAL [facility] WARTS 7821 RASH AND 02-09-2015 [facility] OTHER CLINIC NONSPECIFIC SKIN ERUPTION 6929 CONTACT 01-30-2015 [facility] DERMATITIS& CLINIC OTHER ECZEMA DUE UNSPEC CAUSE 9599 INJURY 01-06-2015 [facility] OTHER AND CLINIC UNSPECIFIED UNSPECIFIED SITE 9114 TRNK INSECT 01-04-2015 [facility] BITE N EMERGENCY NONVENOMOUS PHYS WITHOUT MENTION INF 9174 FOOT&TOE 01-04-2015 [facility] INSECT BITE N EMERGENCY PHYS NONVENOMOUS W/O MENTION INF E9064 BITE OF 01-04-2015 [facility] NONVENOMOUS N EMERGENCY ARTHROPOD PHYS 2720 PURE 12-08-2014 [facility] 7197 DIFFICULTY 12-08-[address] [place] [address] [facility] 75118 PRECORDIAL 12-08-2014 SHANELL YOO [place]IN CONSULTING SRV 59901 SHORTNESS 12-02-2014 SHANELL YOO OF BREATH CONSULTING SRV V703 OTH GENERAL 12-02-2014 [facility] YOO MEDICAL EXAMINATION CONSULTING ADMIN SRV PURPOSES 7851 PALPITATION 11-23-2014 SHANE[facility] Crandall MD CONSULTING SRV V7612 OTHER 11-22-2014 [facility] [place] SCRE[facility]ING RADIOLOG[facility] MAMMOGRAM V829 SCREENING 11-22-2014 [facility] CONDITION 94035 OVERWEIGHT 11-21-2014 [facility] HOLDINGS 4019 UNSPECIFIED 11-21-2014 [facility] ESSENTIAL [facility] HYPERTENSIO HOLDINGS N 77411 ESOPHAGEAL 11-10-2014 [facility] REFLUX [facility] 58015 POSTNASAL 11-10-2014 [facility] DRIP [facility]INIC 34938 CHEST PAIN 11-08-2014 [facility] UNSPECIFIED CLINIC J40 BRONCHITIS, NOT SPECIFIED ACUTE OR CHRONIC M25.473 EFFUSION, UNSPECIFIED ANKLE S90.00XA CONTUSION OF UNSPECIFIED ANKLE, INITIAL ENCOUNTER Medications Na ND Rx Da Fi Fi Am Da Di Ph RX Ph St me C No te ll ll ou ys ag ar # ys at rm s nt no ma ic us Or Da si cy ia de te s n re d KL 66 10 11 90 30 00 KE Ac OR 75 -2 -1 .0 00 NT ti -C 80 0- 7- 00 01 UC ve ON 16 20 20 06 [place] 00 17 17 93 10 5 01 CV S ME PH Q AR TA MA BL CY ET LL C, DB A CV S PH AR MA CY #3 01 6 FL 65 10 11 30 30 00 KE Ac UO 86 -1 -1 .0 00 NT ti XE 20 8- 7- 00 01 UC ve TI 19 20 20 03 [place] NE 40 17 17 74 5 86 CV HC S L PH 40 AR MA MG CY CA LL PS C, UL E DB A CV S PH AR MA CY #3 01 6 AM 42 10 11 30 30 00 KE Ac LO 80 -1 -1 .0 00 NT ti DI 60 0- 0- 00 01 UC ve PI 05 20 20 06 [place] NE 50 17 17 62 5 84 CV BE S SY PH LA AR TE MA CY 2. 5 LL MG C, TA DB B A CV S PH AR MA CY #3 01 6 DI 00 10 11 60 30 00 KE Ac VA 37 -1 -1 .0 00 NT ti LP 80 4- 0- 00 01 UC ve RO 47 20 20 05 [place] EX 20 17 17 27 1 67 CV SO S D PH ER AR MA 25 CY 0 MG LL C, TA B DB A CV S PH AR MA CY #3 01 6 PA 59 10 11 30 30 00 KE Ac NT 74 -1 -1 .0 00 NT ti OP 60 4- 0- 00 01 UC ve RA 28 20 20 02 [place] ZO 49 17 17 22 LE 0 93 CV S SO PH D AR DR MA CY 40 LL MG C, TA DB B A CV S PH AR MA CY #3 01 6 CL 65 10 11 30 30 00 KE Ac OP 86 -0 -1 .0 00 NT ti ID 20 9- 0- 00 01 UC ve OG 35 20 20 06 [place] RE 79 17 17 60 L 0 49 CV 75 S PH MG AR MA TA CY BL ET LL C, DB A CV S PH AR MA CY #3 01 6 AT 00 10 11 30 30 00 KE Ac OR 37 -0 -1 .0 00 NT ti VA 83 9- 0- [address] 95 20 20 06 [place] AT 37 17 17 60 IN 7 48 CV S 80 PH AR MG MA CY TA BL LL ET C, DB A CV S PH AR MA CY #3 01 6 FL 70 10 11 0. 1 00 KE Ac UC 46 -0 -0 50 00 NT ti EL 10 2- 3- 0 01 UC ve VA 20 20 20 06 [place] X 10 17 17 41 QU 1 17 CV AD S PH 20 AR 17 MA -2 CY 01 8 LL SY C, R DB A CV S PH AR MA CY #3 01 6 BU 49 10 11 60 30 00 KE Ac SP 88 -0 -0 .0 00 NT ti IR 40 2- 3- 00 01 UC ve ON 72 20 20 05 [place] E 50 17 17 20 HC 1 42 CV L S 7. PH 5 AR MG MA CY TA BL LL ET C, DB A CV S PH AR MA CY #3 01 6 TI 00 10 11 90 30 00 KE Ac ZA 37 -0 -0 .0 00 NT ti NI 80 8- 3- 00 01 UC ve DI 72 20 20 02 [place] NE 41 17 17 10 9 69 CV HC S L PH 4 AR MG MA CY TA BL LL ET C, DB A CV S PH AR MA CY #3 01 6 LO 68 09 10 30 30 00 KE Ac SA 18 -2 -2 .0 00 NT ti RT 00 4- 0- 00 01 UC ve AN 21 20 20 05 [place] -H [address] 9 39 CV Z S 50 PH -1 AR 2. MA 5 CY MG LL TA C, B DB A CV S PH AR MA CY #3 01 6 FL 65 09 10 60 30 00 KE Ac UO 86 -2 -2 .0 00 NT ti XE 20 2- 0- 00 01 UC ve TI 19 20 20 04 [place] NE 40 17 17 52 5 95 CV HC S L PH 40 AR MA MG CY CA LL PS C, UL E DB A CV S PH AR MA CY #3 01 6 NE 50 08 10 30 30 00 KE Ac UP 47 -3 -1 .0 00 NT ti RO 40 0- 3- 00 01 UC ve 2 80 20 20 05 [place] 20 17 17 53 MG 3 30 CV /2 S 4 PH HR AR MA PA CY TC H LL C, DB A CV S PH AR MA CY #3 01 6 PA 59 09 10 30 30 00 KE Ac NT 74 -1 -1 .0 00 NT ti OP 60 4- 3- 00 01 UC ve RA 28 20 20 02 [place] ZO 49 17 17 22 LE 0 93 CV S SO PH D AR DR MA CY 40 LL MG C, TA DB B A CV S PH AR MA CY #3 01 6 TI 00 09 10 90 30 00 KE Ac ZA 37 -1 -1 .0 00 NT ti NI 80 1- 3- 00 01 UC ve DI 72 20 20 02 [place] NE 41 17 17 10 9 69 CV HC S L PH 4 AR MG MA CY TA BL LL ET C, DB A CV S PH AR MA CY #3 01 6 DI 00 09 10 60 30 00 KE Ac VA 37 -1 -1 .0 00 NT ti LP 80 6- 3- 00 01 UC ve RO 47 20 20 05 [place] EX 20 17 17 27 1 67 CV SO S D PH ER AR MA 25 CY 0 MG LL C, TA B DB A CV S PH AR MA CY #3 01 6 HY 16 09 10 30 [address] 72 -1 -1 .0 00 NT ti OC 90 1- 3- 00 01 UC ve HL 18 20 20 05 [place] OR 20 17 17 81 OT 1 55 CV HI S AZ PH ID AR E MA 12 CY .5 LL MG C, TB DB A CV S PH AR MA CY #3 01 6 LI 00 09 10 15 23 00 LE Ac DO 11 -1 -1 8. 00 XI ti CA 51 4- 3- 09 00 NG ve IN 46 20 20 9 19 TO E- 84 17 17 97 N NM 5 15 CO IL MP OC OU AI ND NE IN G CR PH EA AR M MA CY NM 00 09 10 10 5 00 SO Ac ED 05 -1 -1 .0 00 PE ti NI 40 2- 3- 00 00 RS ve SO 01 20 20 57 NE 82 17 17 24 FA 9 24 SC [address] ANYI TA BL ET DI 61 09 10 10 3 00 SO Ac CL 44 -1 -1 .0 00 PE ti OF 20 2- 3- 00 00 RS ve EN 10 20 20 57 AC 20 17 17 24 FA 1 23 SC SO LY D DR DR DE SANTIAGO 50 MG TA B KL 66 09 10 60 30 00 KE Ac OR 75 -0 -0 .0 00 NT ti -C 80 7- 6- 00 01 UC ve ON 17 20 20 00 [place] 00 17 17 72 M1 1 88 CV 0 S TA PH BL AR ET MA CY LL C, DB A CV S PH AR MA CY #3 01 6 AT 00 09 10 30 30 00 KE Ac OR 37 -0 -0 .0 00 NT ti VA 83 9- 6- [address] 95 20 20 01 [place] AT 37 17 17 88 IN 7 21 CV S 80 PH AR MG MA CY TA BL LL ET C, DB A CV S PH AR MA CY #3 01 6 CL 65 09 10 30 30 00 KE Ac OP 86 -0 -0 .0 00 NT ti ID 20 9- 6- 00 01 UC ve OG 35 20 20 04 [place] RE 79 17 17 23 L 0 45 CV 75 S PH MG AR MA TA CY BL ET LL C, DB A CV S PH AR MA CY #3 01 6 LO 68 08 09 30 30 00 KE Ac SA 18 -2 -2 .0 00 NT ti RT 00 8- 9- 00 01 UC ve AN 21 20 20 05 [place] -H [address] 9 39 CV Z S 50 PH -1 AR 2. MA 5 CY MG LL TA C, B DB A CV S PH AR MA CY #3 01 6 FL 65 08 09 60 30 00 KE Ac UO 86 -2 -2 .0 00 NT ti XE 20 4- 2- 00 01 UC ve TI 19 20 20 04 [place] NE 40 17 17 52 5 95 CV HC S L PH 40 AR MA MG CY CA LL PS C, UL E DB A CV S PH AR MA CY #3 01 6 NE 50 08 09 30 30 00 KE Ac UP 47 -2 -2 .0 00 NT ti RO 40 3- 2- 00 01 UC ve 1 80 20 20 05 [place] 10 17 17 28 MG 3 55 CV /2 S 4 PH HR AR MA PA CY TC H LL C, DB A CV S PH AR MA CY #3 01 6 DI 00 08 09 60 30 00 KE Ac VA 37 -2 -2 .0 00 NT ti LP 80 1- 2- 00 01 UC ve RO 47 20 20 05 [place] EX 20 17 17 27 1 67 CV SO S D PH ER AR HA 25 CY 0 MG LL C, TA B DB A CV S PH AR HA CY #3 01 6 CL 65 08 09 30 30 00 KE Ac OP 86 -0 -0 .0 00 NT ti ID 20 8- 1- 00 01 UC ve OG 35 20 20 04 [place] RE 79 17 17 23 L 0 45 CV 75 S PH MG AR MA TA CY BL ET LL C, DB A CV S PH AR HA CY #3 01 6 AT 00 08 09 30 30 00 KE Ac OR 37 -1 -0 .0 00 NT ti VA 83 2- 1- [address] 95 20 20 01 [place] AT 37 17 17 88 IN 7 21 CV S 80 PH AR MG MA CY TA BL LL ET C, DB A CV S PH AR MA CY #3 01 6 PA 59 08 09 30 30 00 KE Ac NT 74 -0 -0 .0 00 NT ti OP 60 1- 1- 00 01 UC ve RA 28 20 20 02 KY ZO 49 17 17 22 LE 0 93 CV S SO PH D AR DR HA CY 40 LL MG C, TA DB B A CV S PH AR HA CY #3 01 6 HY 16 08 09 30 [address] 72 -1 -0 .0 00 NT ti OC 90 0- 1- 00 01 UC ve HL 18 20 20 03 [place] OR 20 17 17 58 OT 1 26 CV HI S AZ PH ID AR E MA 12 CY .5 LL MG C, TB DB A CV S PH AR MA CY #3 01 6 KL 66 08 09 60 30 00 KE Ac OR 75 -1 -0 .0 00 NT ti -C 80 2- 1- 00 01 UC ve ON 17 20 20 00 [place] 00 17 17 72 M1 1 88 CV 0 S TA PH BL AR ET MA CY LL C, DB A CV S PH AR HA CY #3 01 6 CE 68 07 08 10 5 00 KE Ac FU 18 -2 -2 .0 00 NT ti RO 00 5- 5- 00 01 UC ve XI 30 20 20 04 [place] ME 36 17 17 57 0 78 CV AX S ET PH IL AR MA 50 CY 0 MG LL C, TA B DB A CV S PH AR MA CY #3 01 6 HY 53 07 08 30 [address] 74 -2 -2 .0 00 NT ti OC 60 5- 5- 00 01 UC ve OD 10 20 20 04 [place] ON 90 17 17 57 -A 5 77 CV CE S TA PH SC AR NO MA PH CY EN LL 5- C, 32 5 DB A CV S PH AR MA CY #3 01 6 FL 65 07 08 60 30 00 KE Ac UO 86 -2 -2 .0 00 NT ti XE 20 8- 5- 00 01 UC ve TI 19 20 20 04 [place] NE 40 17 17 52 5 95 CV HC S L PH 40 AR MA MG CY CA LL PS C, UL E DB A CV S PH AR MA CY #3 01 6 DI 00 07 08 30 30 00 KE Ac VA 37 -1 -1 .0 00 NT ti LP 80 7- 8- 00 01 UC ve RO 47 20 20 04 [place] EX 30 17 17 39 1 52 CV SO S D PH ER AR MA 50 CY 0 MG LL C, TA B DB A CV S PH AR MA CY #3 01 6 FL 65 07 08 30 30 00 KE Ac UO 86 -1 -1 .0 00 NT ti XE 20 7- 8- 00 01 UC ve TI 19 20 20 03 [place] NE 40 17 17 74 5 86 CV HC S L PH 40 AR MA MG CY CA LL PS C, UL E DB A CV S PH AR MA CY #3 01 6 TI 00 07 08 90 30 00 KE Ac ZA 37 -1 -1 .0 00 NT ti NI 80 7- 8- 00 01 UC ve DI 72 20 20 02 [place] NE 41 17 17 10 9 69 CV HC S L PH 4 AR MG MA CY TA BL LL ET C, DB A CV S PH AR MA CY #3 01 6 IS 68 07 08 30 30 00 KE Ac OS 38 -1 -1 .0 00 NT ti OR 20 7- 8- 00 01 UC ve BI 65 20 20 04 [place] DE 00 17 17 39 5 77 CV MN S PH ER AR MA 30 CY MG LL C, TA BL DB ET A CV S PH AR MA CY #3 01 6 BU 49 07 08 60 30 00 KE Ac SP 88 -1 -1 .0 00 NT ti IR 40 7- 8- 00 00 UC ve ON 72 20 20 99 [place] E 50 17 17 63 HC 1 89 CV L S 7. PH 5 AR MG MA CY TA BL LL ET C, DB A CV S PH AR MA CY #3 01 6 LI 00 07 08 18 23 00 LE Ac DO 11 -2 -1 0. 00 XI ti CA 51 0- 8- 00 00 NG ve IN 46 20 20 0 19 TO E- 84 17 17 97 N NM 5 15 CO IL MP OC OU AI ND NE IN G CR PH EA AR M MA CY CL 65 07 08 30 30 00 KE Ac OP 86 -1 -0 .0 00 NT ti ID 20 0- 4- 00 01 UC ve OG 35 20 20 04 [place] RE 79 17 17 23 L 0 45 CV 75 S PH MG AR MA TA CY BL ET LL C, DB A CV S PH AR HA CY #3 01 6 HY 16 07 08 30 [address] 72 -1 -0 .0 00 NT ti OC 90 2- 4- 00 01 UC ve HL 18 20 20 03 [place] OR 20 17 17 58 OT 1 26 CV HI S AZ PH ID AR E MA 12 CY .5 LL MG C, TB DB A CV S PH AR HA CY #3 01 6 AT 00 07 08 30 30 00 KE Ac OR 37 -1 -0 .0 00 NT ti VA 83 2- 4- [address] 95 20 20 01 KY AT 37 17 17 88 IN 7 21 CV S 80 PH AR MG MA CY TA BL LL ET C, DB A CV S PH AR HA CY #3 01 6 PA 59 06 07 30 30 00 KE Ac NT 74 -2 -2 .0 00 NT ti OP 60 7- 8- 00 01 UC ve RA 28 20 20 02 KY ZO 49 17 17 22 LE 0 93 CV S SO PH D AR DR MA CY 40 LL MG C, TA DB B A CV S PH AR MA CY #3 01 6 ME 00 06 07 21 6 00 KE Ac TH 60 -3 -2 .0 00 NT ti YL 34 0- 8- 00 01 UC ve NM 59 20 20 04 [place] ED 31 17 17 04 NI 5 13 CV SO S LO PH NE AR 4 MA CY MG LL DO C, SE PK DB A CV S PH AR MA CY #3 01 6 KL 66 06 07 60 30 00 KE Ac OR 75 -2 -2 .0 00 NT ti -C 80 7- 8- 00 01 UC ve ON 17 20 20 00 [place] 00 17 17 72 M1 1 88 CV 0 S TA PH BL AR ET MA CY LL C, DB A CV S PH AR MA CY #3 01 6 IP 00 06 07 36 30 00 YO Ac RA 48 -2 -2 0. 00 UR ti T- 70 6- 8- 00 00 ve AL 20 20 20 0 03 PH BU 16 17 17 21 AR T 0 19 MA 0. CY 5- 3( LL 2. C 5) MG /3 ML CE 68 06 07 20 10 00 KE Ac FD 18 -2 -2 .0 00 NT ti IN 00 0- 1- 00 01 UC ve IR 71 20 20 03 [place] 16 17 17 77 30 0 38 CV 0 S MG PH AR CA MA PS CY UL E LL C, DB A CV S PH AR MA CY #3 01 6 NM 42 06 07 60 30 00 KE Ac AM 54 -2 -2 .0 00 NT ti IP 30 2- 1- 00 01 UC ve EX 70 20 20 02 [place] OL 79 17 17 81 E 0 79 CV 0. S 75 PH AR MG MA CY TA BL LL ET C, DB A CV S PH AR MA CY #3 01 6 TI 00 06 07 90 30 00 KE Ac ZA 37 -1 -2 .0 00 NT ti NI 80 9- 1- 00 01 UC ve DI 72 20 20 02 [place] NE 41 17 17 10 9 69 CV HC S L PH 4 AR MG MA CY TA BL LL ET C, DB A CV S PH AR MA CY #3 01 6 FL 65 06 07 30 30 00 KE Ac UO 86 -1 -2 .0 00 NT ti XE 20 9- 1- 00 01 UC ve TI 19 20 20 03 [place] NE 40 17 17 74 5 86 CV HC S L PH 40 AR MA MG CY CA LL PS C, UL E DB A CV S PH AR MA CY #3 01 6 CL 65 06 07 30 30 00 KE Ac OP 86 -0 -0 .0 00 NT ti ID 20 9- 7- 00 01 UC ve OG 35 20 20 01 [place] RE 79 17 17 88 L 0 20 CV 75 S PH MG AR MA TA CY BL ET LL C, DB A CV S PH AR MA CY #3 01 6 HY 16 06 07 30 [address] 72 -1 -0 .0 00 NT ti OC 90 2- 7- 00 01 UC ve HL 18 20 20 03 [place] OR 21 17 17 58 OT 7 26 CV HI S AZ PH ID AR E MA 12 CY .5 LL MG C, TB DB A CV S PH AR MA CY #3 01 6 IS 68 06 07 30 30 00 KE Ac OS 38 -1 -0 .0 00 NT ti OR 20 8- 7- 00 01 UC ve BI 65 20 20 01 [place] DE 00 17 17 88 5 35 CV MN S PH ER AR MA 30 CY MG LL C, TA BL DB ET A CV S PH AR MA CY #3 01 6 FL 50 06 07 30 30 00 KE Ac UO 11 -1 -0 .0 00 NT ti XE 10 0- 7- 00 00 UC ve TI 64 20 20 98 [place] NE 80 17 17 92 1 06 CV HC S L PH 20 AR MA MG CY CA LL PS C, UL E DB A CV S PH AR MA CY #3 01 6 VE 00 06 07 18 30 00 KE Ac NT 17 -0 -0 .0 00 NT ti OL 30 6- 7- 00 01 UC ve IN 68 20 20 03 [place] 22 17 17 46 HF 0 53 CV A S 90 PH AR MC MA G CY IN SAHNI LL LE C, R DB A CV S PH AR MA CY #3 01 6 AT 00 06 07 30 30 00 KE Ac OR 37 -1 -0 .0 00 NT ti VA 83 0- 7- [address] 95 20 20 01 [place] AT 37 17 17 88 IN 7 21 CV S 80 PH AR MG MA CY TA BL LL ET C, DB A CV S PH AR MA CY #3 01 6 NM 68 06 07 60 30 00 KE Ac AM 46 -0 -0 .0 00 NT ti IP 20 8- 7- 00 01 UC ve EX 33 20 20 03 [place] OL 19 17 17 51 E 0 69 CV 0. S 25 PH AR MG MA CY TA BL LL ET C, DB A CV S PH AR MA CY #3 01 6 SP 00 06 07 30 30 00 KE Ac IR 59 -0 -0 .0 00 NT ti IV 70 6- 7- 00 01 UC ve A 07 20 20 03 [place] 18 54 17 17 46 1 54 CV MC S G PH CP AR -H MA AN CY DI SAHNI LL LE C, R DB A CV S PH AR MA CY #3 01 6 DI 00 06 07 30 30 00 KE Ac VA 37 -1 -0 .0 00 NT ti LP 80 0- 7- 00 01 UC ve RO 47 20 20 02 [place] EX 30 17 17 81 1 80 CV SO S D PH ER AR MA 50 CY 0 MG LL C, TA B DB A CV S PH AR HA CY #3 01 6 LI 00 06 07 13 23 00 LE Ac DO 11 -1 -0 9. 00 XI ti CA 51 5- 7- 19 00 NG ve IN 46 20 20 9 18 TO E- 84 17 17 35 N NM 5 14 CO IL MP OC OU AI ND NE IN G CR PH EA AR M HA CY PA 59 05 06 30 30 00 KE Ac NT 74 -2 -2 .0 00 NT ti OP 60 2- 3- 00 01 UC ve RA 28 20 20 02 [place] ZO 49 17 17 22 LE 0 93 CV S SO PH D AR DR HA CY 40 LL MG C, TA DB B A CV S PH AR HA CY #3 01 6 FL 49 05 06 30 30 00 KE Ac UO 88 -1 -0 .0 00 NT ti XE 40 6- 9- 00 00 UC ve TI 87 20 20 98 [place] NE 20 17 17 92 1 09 CV HC S L PH 40 AR MA MG CY CA LL PS C, UL E DB A CV S PH AR HA CY #3 01 6 BU 49 05 06 60 30 00 KE Ac SP 88 -1 -0 .0 00 NT ti IR 40 6- 9- 00 00 UC ve ON 72 20 20 99 [place] E 50 17 17 63 HC 1 89 CV L S 7. PH 5 AR MG HA CY TA BL LL ET C, DB A CV S PH AR HA CY #3 01 6 NM 68 05 06 60 30 00 KE Ac AM 46 -0 -0 .0 00 NT ti IP 20 5- 2- 00 01 UC ve EX 33 20 20 00 [place] OL 19 17 17 30 E 0 40 CV 0. S 25 PH AR MG HA CY TA BL LL ET C, DB A CV S PH AR HA CY #3 01 6 CL 65 05 06 30 30 00 KE Ac OP 86 -0 -0 .0 00 NT ti ID 20 5- 2- 00 01 UC ve OG 35 20 20 01 [place] RE 79 17 17 88 L 0 20 CV 75 S PH MG AR HA TA CY BL ET LL C, DB A CV S PH AR HA CY #3 01 6 AT 00 05 06 30 30 00 KE Ac OR 37 -1 -0 .0 00 NT ti VA 83 2- 2- [address] 95 20 20 01 [place] AT 37 17 17 88 IN 7 21 CV S 80 PH AR MG HA CY TA BL LL ET C, DB A CV S PH AR MA CY #3 01 6 FL 50 05 06 30 30 00 KE Ac UO 11 -1 -0 .0 00 NT ti XE 10 3- 2- 00 00 UC ve TI 64 20 20 98 [place] NE 80 17 17 92 1 06 CV HC S L PH 20 AR MA MG CY CA LL PS C, UL E DB A CV S PH AR MA CY #3 01 6 DI 00 05 06 30 30 00 KE Ac VA 37 -1 -0 .0 00 NT ti LP 80 1- 2- 00 01 UC ve RO 47 20 20 02 [place] EX 30 17 17 81 1 80 CV SO S D PH ER AR MA 50 CY 0 MG LL C, TA B DB A CV S PH AR MA CY #3 01 6 HY 00 05 06 30 [address] 37 -1 -0 .0 00 NT ti OC 80 2- 2- 00 01 UC ve HL 81 20 20 01 [place] OR 00 17 17 15 OT 5 87 CV HI S AZ PH ID AR E MA 12 CY .5 LL MG C, CP DB A CV S PH AR MA CY #3 01 6 IS 68 05 06 30 30 00 KE Ac OS 38 -1 -0 .0 00 NT ti OR 20 2- 2- 00 01 UC ve BI 65 20 20 01 [place] DE 00 17 17 88 5 35 CV MN S PH ER AR MA 30 CY MG LL C, TA BL DB ET A CV S PH AR MA CY #3 01 6 LI 00 05 06 13 23 00 LE Ac DO 11 -1 -0 9. 00 XI ti CA 51 2- 2- 19 00 NG ve IN 46 20 20 9 18 TO E- 84 17 17 35 N NM 5 14 CO IL MP OC OU AI ND NE IN G CR PH EA AR M MA CY IP 00 05 06 36 30 00 YO Ac RA 48 -0 -0 0. 00 UR ti T- 70 2- 2- 00 00 ve AL 20 20 20 0 03 PH BU 16 17 17 21 AR T 0 19 MA 0. CY 5- 3( LL 2. C 5) MG /3 ML KL 66 04 05 60 30 00 KE Ac OR 75 -2 -1 .0 00 NT ti -C 80 8- 9- 00 01 UC ve ON 17 20 20 00 [place] 00 17 17 72 M1 1 88 CV 0 S TA PH BL AR ET MA CY LL C, DB A CV S PH AR MA CY #3 01 6 PA 59 04 05 30 30 00 KE Ac NT 74 -1 -1 .0 00 NT ti OP 60 8- 2- 01 UC ve RA 28 20 20 00 [place] ZO 49 17 17 50 LE 0 88 CV S SO PH D AR DR MA CY 40 LL MG C, TA DB B A CV S PH AR HA CY #3 01 6 HY 00 04 05 30 [address] 37 -1 -0 .0 00 NT ti OC 80 2- 5- 01 UC ve HL 81 20 20 01 [place] OR 00 17 17 15 OT 5 87 CV HI S AZ PH ID AR E MA 12 CY .5 LL MG C, CP DB A CV S PH AR MA CY #3 01 6 BU 49 04 05 60 30 00 KE Ac SP 88 -1 -0 .0 00 NT ti IR 40 3- 5- 00 UC ve ON 72 20 20 99 [place] E 50 17 17 63 HC 1 89 CV L S 7. PH 5 AR MG MA CY TA BL LL ET C, DB A CV S PH AR MA CY #3 01 6 FL 49 04 05 30 30 00 KE Ac UO 88 -1 -0 .0 00 NT ti XE 40 3- 5- 00 UC ve TI 87 20 20 98 [place] NE 20 17 17 92 1 09 CV HC S L PH 40 AR MA MG CY CA LL PS C, UL E DB A CV S PH AR MA CY #3 01 6 AT 00 04 04 30 30 00 KE Ac OR 37 -0 -2 .0 00 NT ti VA 83 - 8- [address] 95 20 20 01 [place] AT 37 17 17 88 IN 7 21 CV S 80 PH AR MG MA CY TA BL LL ET C, DB A CV S PH AR MA CY #3 01 6 FL 50 04 04 30 30 00 KE Ac UO 11 -0 -2 .0 00 NT ti XE 10 3- 8- 00 UC ve TI 64 20 20 98 [place] NE 80 17 17 92 1 06 CV HC S L PH 20 AR MA MG CY CA LL PS C, UL E DB A CV S PH AR MA CY #3 01 6 IS 68 04 04 30 30 00 KE Ac OS 38 -0 -2 .0 00 NT ti OR 20 5- 8- 01 UC ve BI 65 20 20 01 [place] DE 00 17 17 88 5 35 CV MN S PH ER AR MA 30 CY MG LL C, TA BL DB ET A CV S PH AR MA CY #3 01 6 CL 65 04 04 30 30 00 KE Ac OP 86 -0 -2 .0 00 NT ti ID 20 6- 8- 00 01 UC ve OG 35 20 20 01 [place] RE 79 17 17 88 L 0 20 CV 75 S PH MG AR MA TA CY BL ET LL C, DB A CV S PH AR MA CY #3 01 6 AM 66 03 04 20 10 00 SO Ac OX 68 -2 -1 .0 00 PE ti -C 51 1- 4- 00 00 RS ve LA 00 20 20 55 V 10 17 17 93 FA 87 0 42 SC 5- LY [address] MG UG TA BL ET PA 59 03 04 30 30 00 KE Ac NT 74 -2 -1 .0 00 NT ti OP 60 2- 4- 00 01 UC ve RA 28 20 20 00 [place] ZO 49 17 17 50 LE 0 88 CV S SO PH D AR DR MA CY 40 LL MG C, TA DB B A CV S PH AR MA CY #3 01 6 KL 66 03 04 60 30 00 KE Ac OR 75 -2 -1 .0 00 NT ti -C 80 6- 4- 00 01 UC ve ON 17 20 20 00 [place] 00 17 17 72 M1 1 88 CV 0 S TA PH BL AR ET MA CY LL C, DB A CV S PH AR MA CY #3 01 6 TI 00 03 04 90 30 00 KE Ac ZA 37 -1 -0 .0 00 NT ti NI 80 6- 7- 00 00 UC ve DI 72 20 20 95 [place] NE 41 17 17 02 9 75 CV HC S L PH 4 AR MG MA CY TA BL LL ET C, DB A CV S PH AR MA CY #3 01 6 BU 49 03 04 60 30 00 KE Ac SP 88 -1 -0 .0 00 NT ti IR 40 6- 7- 00 00 UC ve ON 72 20 20 99 [place] E 50 17 17 63 HC 1 89 CV L S 7. PH 5 AR MG MA CY TA BL LL ET C, DB A CV S PH AR MA CY #3 01 6 FL 49 03 04 30 30 00 KE Ac UO 88 -1 -0 .0 00 NT ti XE 40 6- 7- 00 00 UC ve TI 87 20 20 98 [place] NE 20 17 17 92 1 09 CV HC S L PH 40 AR MA MG CY CA LL PS C, UL E DB A CV S PH AR MA CY #3 01 6 CL 65 03 03 30 30 00 KE Ac OP 86 -1 -3 .0 00 NT ti ID 20 0- 1- 00 00 UC ve OG 35 20 20 99 [place] RE 79 17 17 30 L 0 03 CV 75 S PH MG AR MA TA CY BL ET LL C, DB A CV S PH AR MA CY #3 01 6 HY 00 03 03 30 [address] 37 -1 -3 .0 00 NT ti OC 80 0- 1- 00 01 UC ve HL 81 20 20 01 [place] OR 00 17 17 15 OT 5 87 CV HI S AZ PH ID AR E MA 12 CY .5 LL MG C, CP DB A CV S PH AR MA CY #3 01 6 CE 00 03 03 30 30 00 KE Ac TI 37 -1 -3 .0 00 NT ti RI 83 0- 1- 00 01 UC ve ZI 63 20 20 00 [place] NE 70 17 17 37 1 90 CV HC S L PH 10 AR MA MG CY TA LL BL C, ET DB A CV S PH AR MA CY #3 01 6 AT 00 03 03 30 30 00 KE Ac OR 37 -1 -3 .0 00 NT ti VA 83 0- 1- [address] 95 20 20 94 [place] AT 37 17 17 63 IN 7 40 CV S 80 PH AR MG MA CY TA BL LL ET C, DB A CV S PH AR MA CY #3 01 6 IS 68 03 03 30 30 00 KE Ac OS 38 -1 -3 .0 00 NT ti OR 20 0- 1- 00 00 UC ve BI 65 20 20 99 [place] DE 00 17 17 45 5 55 CV MN S PH ER AR MA 30 CY MG LL C, TA BL DB ET A CV S PH AR MA CY #3 01 6 FL 00 03 03 16 30 00 KE Ac UT 05 -1 -3 .0 00 NT ti IC 43 0- 1- 00 00 UC ve 27 20 20 95 [place] ON 09 17 17 84 E 9 86 CV NM S OP PH AR 50 MA CY MC G LL SP C, RA Y DB A CV S PH AR MA CY #3 01 6 NM 68 03 03 60 30 00 KE Ac AM 46 -1 -3 .0 00 NT ti IP 20 0- 1- 00 01 UC ve EX 33 20 20 00 [place] OL 19 17 17 30 E 0 40 CV 0. S 25 PH AR MG MA CY TA BL LL ET C, DB A CV S PH AR MA CY #3 01 6 LI 00 03 03 13 23 00 LE Ac DO 11 -1 -3 9. 00 XI ti CA 51 0- 1- 19 00 NG ve IN 46 20 20 9 18 TO E- 84 17 17 35 N NM 5 14 CO IL MP OC OU AI ND NE IN G CR PH EA AR M MA CY KL 66 02 03 60 30 00 KE Ac OR 75 -2 -1 .0 00 NT ti -C 80 3- 7- 00 01 UC ve ON 17 20 20 00 [place] 00 17 17 72 M1 1 88 CV 0 S TA PH BL AR ET MA CY LL C, DB A CV S PH AR MA CY #3 01 6 NM 68 02 03 90 30 00 KE Ac AM 46 -2 -1 .0 00 NT ti IP 20 0- 7- 00 01 UC ve EX 33 20 20 00 [place] OL 29 17 17 63 E 0 90 CV 0. S 5 PH MG AR MA TA CY BL ET LL C, DB A CV S PH AR MA CY #3 01 6 FL 50 02 03 30 30 00 KE Ac UO 11 -2 -1 .0 00 NT ti XE 10 3- 7- 00 00 UC ve TI 64 20 20 98 [place] NE 80 17 17 92 1 06 CV HC S L PH 20 AR MA MG CY CA LL PS C, UL E DB A CV S PH AR MA CY #3 01 6 BU 49 02 03 60 30 00 KE Ac SP 88 -1 -1 .0 00 NT ti IR 40 5- 0- 00 00 UC ve ON 72 20 20 99 [place] E 50 17 17 63 HC 1 89 CV L S 7. PH 5 AR MG MA CY TA BL LL ET C, DB A CV S PH AR MA CY #3 01 6 IS 68 02 03 30 30 00 KE Ac OS 38 -0 -1 .0 00 NT ti OR 20 6- 0- 00 00 UC ve BI 65 20 20 99 [place] DE 00 17 17 45 5 55 CV MN S PH ER AR MA 30 CY MG LL C, TA BL DB ET A CV S PH AR MA CY #3 01 6 CE 00 02 03 30 30 00 KE Ac TI 37 -1 -1 .0 00 NT ti RI 83 0- 0- 00 01 UC ve ZI 63 20 20 00 [place] NE 70 17 17 37 1 90 CV HC S L PH 10 AR MA MG CY TA LL BL C, ET DB A CV S PH AR MA CY #3 01 6 BE 67 02 03 45 15 00 KE Ac NZ 87 -1 -1 .0 00 NT ti ON 70 5- 0- 00 01 UC ve AT 10 20 20 00 [place] AT 60 17 17 51 E 5 58 CV 20 S 0 PH MG AR MA CA CY PS UL LL E C, DB A CV S PH AR MA CY #3 01 6 TI 00 02 03 90 30 00 KE Ac ZA 37 -1 -1 .0 00 NT ti NI 80 5- 0- 00 00 UC ve DI 72 20 20 95 [place] NE 41 17 17 02 9 75 CV HC S L PH 4 AR MG MA CY TA BL LL ET C, DB A CV S PH AR MA CY #3 01 6 PA 59 02 03 30 30 00 KE Ac NT 74 -1 -1 .0 00 NT ti OP 60 5- 0- 00 01 UC ve RA 28 20 20 00 [place] ZO 49 17 17 50 LE 0 88 CV S SO PH D AR DR MA CY 40 LL MG C, TA DB B A CV S PH AR HA CY #3 01 6 FL 49 02 03 30 30 00 KE Ac UO 88 -1 -1 .0 00 NT ti XE 40 5- 0- 00 00 UC ve TI 87 20 20 98 [place] NE 20 17 17 92 1 09 CV HC S L PH 40 AR MA MG CY CA LL PS C, UL E DB A CV S PH AR HA CY #3 01 6 HY 00 02 03 30 [address] 37 -0 -1 .0 00 NT ti OC 80 6- 0- 00 00 UC ve HL 81 20 20 98 [place] OR 00 17 17 56 OT 5 99 CV HI S AZ PH ID AR E MA 12 CY .5 LL MG C, CP DB A CV S PH AR HA CY #3 01 6 AT 00 02 03 30 30 00 KE Ac OR 37 -0 -1 .0 00 NT ti VA 83 8- 0- [address] 95 20 20 94 [place] AT 37 17 17 63 IN 7 40 CV S 80 PH AR MG MA CY TA BL LL ET C, DB A CV S PH AR MA CY #3 01 6 CL 65 02 03 30 30 00 KE Ac OP 86 -0 -1 .0 00 NT ti ID 20 8- 0- 00 00 UC ve OG 35 20 20 99 [place] RE 79 17 17 30 L 0 03 CV 75 S PH MG AR MA TA CY BL ET LL C, DB A CV S PH AR MA CY #3 01 6 NM 68 02 03 60 30 00 KE Ac AM 46 -0 -1 .0 00 NT ti IP 20 8- 0- 00 01 UC ve EX 33 20 20 00 [place] OL 19 17 17 30 E 0 40 CV 0. S 25 PH AR MG MA CY TA BL LL ET C, DB A CV S PH AR MA CY #3 01 6 KL 66 01 02 30 30 00 KE Ac OR 75 -2 -1 .0 00 NT ti -C 80 6- 7- 00 00 UC ve ON 17 20 20 98 [place] 00 17 17 08 M1 1 78 CV 0 S TA PH BL AR ET MA CY LL C, DB A CV S PH AR MA CY #3 01 6 IP 00 01 02 36 30 00 YO Ac RA 48 -2 -1 0. 00 UR ti T- 70 4- 7- 00 00 ve AL 20 20 20 0 03 PH BU 16 17 17 21 AR T 0 19 MA 0. CY 5- 3( LL 2. C 5) MG /3 ML BU 49 01 02 60 30 00 KE Ac SP 88 -1 -1 .0 00 NT ti IR 40 5- 0- 00 00 UC ve ON 72 20 20 99 [place] E 50 17 17 63 HC 1 89 CV L S 7. PH 5 AR MG MA CY TA BL LL ET C, DB A CV S PH AR MA CY #3 01 6 CL 65 01 02 30 30 00 KE Ac OP 86 -1 -1 .0 00 NT ti ID 20 2- 0- 00 00 UC ve OG 35 20 20 99 [place] RE 79 17 17 30 L 0 03 CV 75 S PH MG AR MA TA CY BL ET LL C, DB A CV S PH AR MA CY #3 01 6 IS 68 01 02 30 30 00 KE Ac OS 38 -0 -1 .0 00 NT ti OR 20 9- 0- 00 00 UC ve BI 65 20 20 99 [place] DE 00 17 17 45 5 55 CV MN S PH ER AR MA 30 CY MG LL C, TA BL DB ET A CV S PH AR MA CY #3 01 6 TI 00 01 02 90 30 00 KE Ac ZA 37 -1 -1 .0 00 NT ti NI 80 5- 0- 00 00 UC ve DI 72 20 20 95 [place] NE 41 17 17 02 9 75 CV HC S L PH 4 AR MG MA CY TA BL LL ET C, DB A CV S PH AR MA CY #3 01 6 FL 49 01 02 30 30 00 KE Ac UO 88 -1 -1 .0 00 NT ti XE 40 6- 0- 00 00 UC ve TI 87 20 20 98 [place] NE 20 17 17 92 1 09 CV HC S L PH 40 AR MA MG CY CA LL PS C, UL E DB A CV S PH AR MA CY #3 01 6 PA 59 01 02 30 30 00 KE Ac NT 74 -1 -1 .0 00 NT ti OP 60 7- 0- 00 00 UC ve RA 28 20 20 98 [place] ZO 49 17 17 76 LE 0 29 CV S SO PH D AR DR MA CY 40 LL MG C, TA DB B A CV S PH AR MA CY #3 01 6 HY 00 01 02 30 [address] 37 -0 -0 .0 00 NT ti OC 80 7- 3- 00 00 UC ve HL 81 20 20 98 [place] OR 00 17 17 56 OT 5 99 CV HI S AZ PH ID AR E MA 12 CY .5 LL MG C, CP DB A CV S PH AR MA CY #3 01 6 NM 68 01 02 60 30 00 KE Ac AM 46 -0 -0 .0 00 NT ti IP 20 5- 3- 00 00 UC ve EX 33 20 20 97 [place] OL 19 17 17 73 E 0 44 CV 0. S 25 PH AR MG MA CY TA BL LL ET C, DB A CV S PH AR MA CY #3 01 6 AT 00 01 02 30 30 00 KE Ac OR 37 -0 -0 .0 00 NT ti VA 83 2- 3- [address] 95 20 20 94 [place] AT 37 17 17 63 IN 7 40 CV S 80 PH AR MG MA CY TA BL LL ET C, DB A CV S PH AR MA CY #3 01 6 KR 51 12 01 3. 23 00 LE Ac IS 92 -2 -2 75 00 XI ti GE 73 9- 7- 0 00 NG ve L 21 20 20 18 TO 10 50 16 17 35 N 0 0 14 CO LI MP QU OU ID ND IN G PH AR MA CY AM 66 12 01 20 10 00 SO Ac OX 68 -2 -2 .0 00 PE ti -C 51 9- 7- 00 00 RS ve LA 00 20 20 55 V 10 16 17 22 FA 87 0 66 SC 5- LY [address] MG UG TA BL ET BE 67 12 01 30 10 00 SO Ac NZ 87 -2 -2 .0 00 PE ti ON 70 7- 0- 00 00 RS ve AT 10 20 20 55 AT 60 16 17 19 FA E 5 97 SC [address] UG CA PS UL E KL 66 12 01 30 30 00 KE Ac OR 75 -2 -2 .0 00 NT ti -C 80 5- 0- 00 00 UC ve ON 17 20 20 98 [place] 00 16 17 08 M1 1 78 CV 0 S TA PH BL AR ET MA CY LL C, DB A CV S PH AR MA CY #3 01 6 IP 00 12 01 36 30 00 YO Ac RA 48 -2 -2 0. 00 UR ti T- 70 7- 0- 00 00 ve AL 20 20 20 0 03 PH BU 16 16 17 21 AR T 0 19 MA 0. CY 5- 3( LL 2. C 5) MG /3 ML NM 00 12 01 10 5 00 KE Ac ED 14 -2 -2 .0 00 NT ti NI 39 6- 0- 00 00 UC ve SO 73 20 20 99 [place] NE 80 16 17 09 5 90 CV 20 S PH MG AR MA TA CY BL ET LL C, DB A CV S PH AR MA CY #3 01 6 CI 65 12 01 14 7 00 KE Ac NM 86 -2 -2 .0 00 NT ti OF 20 6- 0- 00 00 UC ve LO 07 20 20 99 [place] XA 70 16 17 09 CI 1 91 CV N S HC PH L AR 50 MA 0 CY MG LL TA C, B DB A CV S PH AR MA CY #3 01 6 FL 49 12 01 30 30 00 KE Ac UO 88 -2 -1 .0 00 NT ti XE 40 0- 3- 00 00 UC ve TI 87 20 20 98 [place] NE 20 16 17 92 1 09 CV HC S L PH 40 AR MA MG CY CA LL PS C, UL E DB A CV S PH AR MA CY #3 01 6 TI 00 12 01 90 30 00 KE Ac ZA 37 -1 -1 .0 00 NT ti NI 80 9- 3- 00 00 UC ve DI 72 20 20 95 [place] NE 41 16 17 02 9 75 CV HC S L PH 4 AR MG MA CY TA BL LL ET C, DB A CV S PH AR MA CY #3 01 6 BU 49 12 01 60 30 00 KE Ac SP 88 -1 -1 .0 00 NT ti IR 40 9- 3- 00 00 UC ve ON 72 20 20 95 [place] E 50 16 17 10 HC 1 71 CV L S 7. PH 5 AR MG MA CY TA BL LL ET C, DB A CV S PH AR MA CY #3 01 6 FL 50 12 01 30 30 00 KE Ac UO 11 -1 -0 .0 00 NT ti XE 10 2- 9- 00 00 UC ve TI 64 20 20 98 [place] NE 80 16 17 69 1 96 CV HC S L PH 20 AR MA MG CY CA LL PS C, UL E DB A CV S PH AR MA CY #3 01 6 PA 59 12 01 30 30 00 KE Ac NT 74 -1 -0 .0 00 NT ti OP 60 4- 9- 00 00 UC ve RA 28 20 20 98 [place] ZO 49 16 17 76 LE 0 29 CV S SO PH D AR DR MA CY 40 LL MG C, TA DB B A CV S PH AR MA CY #3 01 6 Results Labs Lab Lab Date Result Refere [...] 017 K/mm3 ed monocyt 07:50 e count [place] % = 8.6 % 1.7-9.3 complet 017 [...] 07:50 creatin ine measure ment ( Estimat 10-17-2 = 87 59- complet ed 017 ML/MIN ed glomeru 07:50 lar filtrat ion rate (GF Comment: REFERENCE RANGE: >60 ML/MIN/1.73 SQUARE METERS Comment: If this patient is -Prydeinig, then multiply the Comment: result by 1.210. Serum = 99 74-106 complet or 017 mg/dL ed plasma 07:50 glucose measure ment (mas Serum = 3.6 3.5-5.1 complet potassi 017 mmoL/L ed um 07:50 measure ment Serum = 140 136-145 complet sodium 017 mmoL/L ed measure 07:50 ment Encounters Encounter Start End Date Code Location Performer Type Date [facility] - [facility] 7 [facility] 7 7 [facility] 7 [facility] 7 [facility] 7 [facility] 7 [facility] 7 [facility] 7 [facility] - 6 6 [facility] 6 6 [facility] 6 6 [facility] 6 [facility] 6 [facility]
--- OUTSIDE RECORDS SUMMARY | 2017-09-10 19:07 | External Medical Summary Rpt | CCD ---
Author Author , DANIELLA Organization DANIELLA Address Unknown Phone [email or web address] Care Team Providers Care Hotel Office Manager Name Role Phone [facility], Unavailable Unavailable [facility] STARLA GRESHAM MD, PSC, Unavailable Unavailable STARLA GRESHAM MD, PSC [facility] Unavailable Unavailable HOSPITAL, [facility] PHYSICIAN Unavailable Unavailable PRACTICE L, [facility] CARDIOVASCULAR & Unavailable Unavailable SLEEP CONSU, CARDIOVASCULAR & SLEEP CONSU [facility], Unavailable Unavailable [facility], Unavailable Unavailable [facility] Unavailable Unavailable HOSPITA, [facility], [facility]available [facility]available [facility] Unavailable Unavailable INC, [facility], [facility]available Unavailable [facility] Unavailable Unavailable ASSOCIAT, [facility] KEPLINGER, KEPLINGER Unavailable Unavailable [facility] Unavailable Unavailable [facility], [facility] Unavailable Unavailable SERV TRAILER PARK MANAGER R, [facility] SERV TRAILER PARK MANAGER R [facility] Un[facility] SHANELL YOO MD Unavailable Unavailable CONSULTING SRV, SHANELL YOO MD CONSULTING [facility] Unavailable Unavailable EQUIPME, [facility] Unavailable Unavailable EMERGENCY PHYS, [facility] TATI ANG, Unavailable Unavailable DUFFY ANG Purpose Continuity of Care Document - 11-08-2014 through 2016 Problems Code Diagnosis DOS Provider Status M7541 IMPINGEMENT 08-18-2017 [facility]IC OF RIGHT ASSOCIAT SHOULDER M7542 IMPINGEMENT 08-18-2017 [facility] ORTHOPEDIC OF LEFT ASSOCIAT SHOULDER I208 OTHER FORMS 08-05-2017 [facility] OF ANGINA PHYSICIANS PECTORIS GROUP Z07241 [facility] 08-05-2017 [facility] COR ART PHYSICIANS W/OTH FORMS GROUP ANGINA PECTORIS R9439 ABNORMAL 08-05-2017 [facility] RESULT OTH PHYSICIANS CARDIOVASCU GROUP LR FUNCTION STUDY J320 CHRONIC 07-23-2017 [facility] MAXILLARY PHYSICIAN SINUSITIS PRACTICE L F17.210 NICOTINE 07-02-2017 DEPENDENCE, CIGARETTES, UNCOMPLICAT ED I10 ESSENTIAL 07-02-2017 (PRIMARY) HYPERTENSIO N M25.462 EFFUSION, 07-02-2017 LEFT KNEE S80.02XA CONTUSION 07-02-2017 OF LEFT KNEE, INITIAL ENCOUNTER S89.91XA UNSPECIFIED 07-02-2017 INJURY OF RIGHT LOWER LEG, INITIAL ENCOUNTER W19.XXXA UNSPECIFIED 07-02-2017 FALL, INITIAL ENCOUNTER Z79.82 SOLE CEMENTER 07-02-2017 (CURRENT) USE OF ASPIRIN Z79.899 OTHER LONG 07-02-2017 TERM (CURRENT) DRUG THERAPY 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), AND CEREBRAL INFARCTION WITHOUT RESIDUAL DEFICITS M93198 PAIN IN 07-01-2017 [facility] [place] LEFT KNEE [...] INC DZ CIRC SYSTEM J449 CHRONIC 06-16-2017 [facility] OBSTRUCTIVE PHYSICIANS PULMONARY GROUP DISEASE UNS K219 GASTRO-ESOP 06-16-2017 [facility] H REFLUX PHYSICIANS DISEASE GROUP WITHOUT ESOPHAGITIS G2581 RESTLESS 06-09-2017 [facility] SYNDROME R51 HEADACHE 06-09-2017 [facility] E559 VITAMIN D 06-06-2017 [facility] DEFICIENCY [facility]ILL[facility] UNSPECIFIED HOLDINGS E784 OTHER 06-06-2017 [facility] HYPERLIPIDE [facility]ILL[facility] HOLDINGS R279 UNSPECIFIED 05-28-2017 SHANELL FREDO HOLLAND OF COORDINATIO CONSULTING N SRV G4710 HYPERSOMNIA 05-27-2017 [facility] LAR & SLEEP UNSPECIFIED CONSU J0101 ACUTE 05-21-2017 [facility] RECURRENT PHYSICIAN MAXILLARY PRACTICE L SINUSITIS Z09 ENC F/U 05-21-2017 [facility] EXAM AFTR PHYSICIAN CMPL TX OTH PRACTICE [...] OSTEOARTHRI TIS, UNSPECIFIED SITE J321 CHRONIC 05-13-2017 [facility] FRONTAL PHYSICIAN SINUSITIS PRACTICE L J329 CHRONIC 05-13-2017 [facility] UNSPECIFIED R918 OTHER 05-07-2017 [facility] NONSPECIFIC SERV ABNORMAL [facility] FINDING OF LUNG FIELD Z122 ENCOUNTER 05-07-2017 [facility] SCREENING SERV [facility] [place] NEOPLASM RESPIR ORGANS N21759 PERSONAL 05-07-2017 [facility] MEDICAL HISTORY OF [employer] NICOTINE [employer] DEPENDENCE R300 DYSURIA 04-29-2017 [facility] HOLDINGS G43.909 MIGRAINE, 04-21-2017 UNSPECIFIED , NOT INTRACTABLE , WITHOUT STATUS MIGRAINOSUS R51 HEADACHE 04-21-2017 Z88.8 ALLERGY 04-21-2017 STATUS TO OTHER DRUGS, MEDICAMENTS AND BIOLOGICAL SUBSTANCES STATUS A27518 MIGRAINE 04-18-2017 [facility] UNS NOT N EMERGENCY INTRACT W/O PHYS STATUS MIGRAINOSUS J411 MUCOPURULEN 04-14-2017 [facility] T CHRONIC HOME BRONCHITIS MEDICAL EQUIPME Y81902 AC 04-08-2017 [facility] SUPPURATIVE CLINIC OM W/O RUPT EAR DRUM RECUR RT EAR J0140 ACUTE 04-08-2017 [facility] PANSINUSITI CLINIC S UNSPECIFIED R0602 SHORTNESS 03-25-2017 [facility]ICAL OF BREATH SERV FOUNDATION Z23 ENCOUNTER 03-25-2017 [facility] FOR SERV IMMUNIZATIO FOUNDATION N J01.01 ACUTE 02-24-2017 RECURRENT MAXILLARY SINUSITIS J3489 OTHER 02-21-2017 [facility] SPECIFIED RADIOLOGY DISORDERS NOSE AND NASAL SINUSES V72380 SPONDYLOSIS 02-18-2017 [facility] W/O [facility] MYELOPATH/R INC ADICULOPATH Y LUMB RGN M5136 OT 02-18-2017 ESTHER HERNÁNDEZ MD, PSC RAL DISC DEGEN LUMBAR REGION M54.9 DORSALGIA, 02-13-2017 UNSPECIFIED Z91.81 HISTORY OF 02-13-2017 FALLING M546 PAIN IN 02-12-2017 [facility] [place] [facility] SPINE M549 DORSALGIA 02-12-2017 [facility] UNSPECIFIED [facility] Z9181 HISTORY OF 02-12-2017 [facility] FALLING [facility] M4696 UNS 01-21-2017 [facility] INFLAMMATOR MEM HOSP Y INC SPONDYLOPAT HY LUMBAR REGION F65570 OTHER 01-21-2017 [facility] SPONDYLOSIS MEM HOSP LUMBAR INC REGION J0191 ACUTE 01-07-2017 [facility] RECURRENT CLINIC SINUSITIS UNSPECIFIED M461 SACROILIITI 12-24-2016 [facility] S NOT MEM HOSP ELSEWHERE INC CLASSIFIED G4700 INSOMNIA 12-18-2016 [facility] UNSPECIFIED [facility] R072 PRECORDIAL 12-18-2016 [facility] PAIN [facility] R5383 OTHER 12-18-2016 [facility] FATIGUE [facility] J25101 OTHER LONG 12-18-2016 [facility] TERM [facility] DRUG THERAPY Z862 PERSONAL HX 12-18-2016 [facility] BLOOD&BLOOD [facility] FORM ORGN IMMUNE MECH J438 OTHER 12-16-2016 [...] LOW BACK 07-23-2016 FAROOQ HERNÁNDEZ MD, PSC R53399 OTHER 06-28-2016 [place] [facility]IFIED [facility] R202 PARESTHESIA 06-06-2016 [facility] OF SKIN NEUROLOGY H6691 OTITIS 06-04-2016 [facility]IA [facility] UNSPECIFIED RIGHT EAR I6930 UNSPECIFIED 05-16-2016 [facility] SEQUELAE [facility]OLOGY OF CEREBRAL INFARCTION M2550 PAIN IN 04-25-2016 [facility] UNSPECIFIED [facility]ILL[facility] JOINT HOLDINGS D85021 ATHEROSCLER 04-15-2016 SHANELL SALMON ART EXT CONSULTING INTERMIT SRV JERILYN BILAT X51554 PAIN IN 04-15-2016 [facility] LEFT LOWER CLINIC LEG R600 LOCALIZED 04-15-2016 [facility] EDEMA CLINIC Z8673 PERSONAL HX 04-15-2016 [facility] TIA & CLINIC CEREB INFARCT NO RESID DEFICIT R0789 OTHER CHEST 03-26-2016 [facility] PAIN [facility] HOLDINGS M542 CERVICALGIA 02-20-2016 [facility] M5481 OCCIPITAL 02-15-2016 [facility] NEURALGIA NEUROLOGY M791 MYALGIA 02-15-2016 [facility] H6090 UNSPECIFIED 02-12-2016 [facility] OTITIS CLINIC EXTERNA UNSPECIFIED EAR H6690 OTITIS 01-17-2016 [facility] UNSPECIFIED UNSPECIFIED EAR H5340 UNSPECIFIED 12-29-2015 [facility] VISUAL ANG FIELD DEFECTS H539 UNSPECIFIED 12-25-2015 [facility] VISUAL COMMUNTIY DISTURBANCE HOSPITA I6502 OCCLUSION 12-25-2015 [facility] AND [facility] STENOSIS OF HOSPITA LEFT VERTEBRAL ARTERY Z1231 ENCOUNTER 12-12-2015 [facility] [place] SCREENING RADIOLOGY MAMMO MALIG NEOPLASM BREAST L38654 UNS ACUTE 12-01-2015 [facility] NONINFECTIV CLINIC E OTITIS EXTERNA LEFT EAR H6692 OTITIS 12-01-2015 [facility]IA [facility] UNSPECIFIED LEFT EAR R062 WHEEZING 12-01-2015 [facility] Z1239 ENCOUNTER 12-01-2015 [facility] OTHER CLINIC SCREENING MALIG NEOPLASM BREAST G4489 OTHER 11-20-2015 [facility] HEADACHE MEM [facility] SYNDROME INC Z760 ENCOUNTER 08-31-2015 [facility] FOR ISSUE CLINIC OF REPEAT PRESCRIPTIO N M722 PLANTAR 08-22-2015 [facility] FASCIAL CLINIC FIBROMATOSI S D22764 PAIN IN 08-19-2015 [facility] [place] RIGHT ANKLE RADIOLOGY U49143 PAIN IN 08-19-2015 [facility] [place] LEFT ANKLE RADIOLOGY F04624 PAIN IN 08-19-2015 [facility] [place] RIGHT FOOT RADIOLOGY X43332 PAIN IN 08-19-2015 [facility] [place] LEFT FOOT RADIOLOGY 21492 UNSPECIFIED 06-27-2015 [facility] CEREBRAL SERV ARTERY FOUNDATION OCCLUSION W/INFARCT 496 CHRONIC 06-27-2015 [facility] AIRWAY SERV OBSTRUCTION FOUNDATION NEC V1254 PERSONAL HX 06-22-2015 [facility] TIA & CI COMMUNITY W/O HOSPITAL RESIDUAL DEFICITS 71016 INSOMNIA 06-15-2015 [facility] UNSPECIFIED CLINIC 7840 HEADACHE 06-13-2015 [facility] V571 OTHER 06-13-2015 [facility] PHYSICAL [facility] THERAPY [facility] 7231 CERVICALGIA 05-23-2015 [facility] COMM[facility]TI[facility] HOSPITA 7238 OTHER 05-16-2015 [facility] SYNDROMES NEUROLOGY AFFECTING CERVICAL REGION 3814 NONSUPPRATV 05-12-2015 [facility] OTITIS BILL[facility] MEDIA NOT HOLDINGS SPEC ACUT/CHRON 7862 COUGH 05-12-2015 [facility] HOLDINGS 35183 VOMITING 05-12-2015 [facility] ALONE [facility]INGS 03867 DIARRHEA 05-12-2015 [facility] HOLDINGS 82682 OTHER 04-24-2015 [facility] 33638 OTHER 04-24-2015 [facility] V5789 OTHER 04-24-2015 [place] SPECIFIED COMMUNITY REHABILITAT [facility] ION PROCEDURE OTHER V679 UNSPECIFIED 04-17-2015 [facility] FOLLOW-UP CLINIC EXAMINATION 7820 DISTURBANCE 04-13-2015 [facility] [place] OF SKIN RADIOLOGY SENSATION 78267 UNSPEC 04-12-2015 [facility] HEMIP[place]IA [place] AFFECTING NONDOMINANT SIDE 436 ACUTE BUT 04-12-2015 [facility] ILL-DEFINED AMBULANCE SERV TRAILER PARK MANAGER R CEREBROVASC ULAR DISEASE 7802 SYNCOPE AND 04-12-2015 [facility] COLLAPSE N EMERGENCY PHYS 35095 OTHER 04-12-2015 [facility] [place] NONSPECIFIC RADIOLOGY ABNORMAL FINDING OF LUNG FIELD 9953 ALLERGY 04-12-2015 [facility] UNSPECIFIED N EMERGENCY NOT PHYS ELSEWHERE CLASSIFIED 46859 CRAMP OF 04-10-2015 [facility] LIMB [facility] HOLDINGS V5869 LONG-TERM 04-10-2015 [facility] (CURRENT) [facility] USE OF HOLDINGS OTHER MEDICATIONS 6248 OTH SPEC 03-31-2015 [facility] NONINFLAMMA CLINIC TORY DISORDER VULVA&PERIN EUM 2724 OTHER AND 02-27-2015 [facility] UNSPECIFIED [facility] HOLDINGS HYPERLIPIDE [place] 09923 NAUSEA 02-27-2015 [facility] ALONE [facility] HOLDINGS 37095 OTHER 02-27-2015 [facility] ILL-DEFINED [facility] CONDITIONS HOLDINGS 94957 UNSPECIFIED 02-09-2015 [facility] V[facility]AL [facility] WARTS 7821 [...] ARTHROPOD PHYS 2720 PURE 12-08-2014 [place] HYPERCHOLES [facility] 7197 DIFFICULTY 12-08-2014 [place] IN WALKING [facility] 35213 PRECORDIAL 12-08-2014 SHANELL YOO [place] CONSULTING [place]V 11511 SHORTNESS 12-02-2014 SHANELL YOO OF BREATH CONSULTING SRV V703 OTH GENERAL 12-02-2014 SHANELL YOO MEDICAL EXAMINATION CONSULTING ADMIN SRV PURPOSES 7851 PALPITATION 11-23-2014 SHANELL Crandall MD CONSULTING SRV V7612 OTHER 11-22-2014 [facility] [place] S[facility] MAMMOGRAM V829 SCREENING 11-22-2014 [facility] UNSPECIFIED HOSPITAL CONDITION 03224 OVERWEIGHT 11-21-2014 [facility]INGS 4019 UNSPECIFIED 11-21-2014 [facility] ESSENTIAL BILLY HYPERTENSIO HOLDINGS N 07828 ESOPHAGEAL 11-10-2014 [facility] REFLUX [facility]IN[facility] 91560 POSTNASAL 11-10-2014 [facility] DRIP CLINIC 64260 CHEST PAIN 11-08-2014 [facility] UNSPECIFIED CLINIC J40 [...] TO E- 84 17 17 97 N NJ 5 15 CO IL MP OC OU AI ND NE IN G CR PH EA AR M MA CY NJ 00 09 10 10 5 00 SO Ac ED 05 -1 -1 .0 00 PE ti NI 40 2- 3- 00 00 RS ve SO 01 20 20 57 NE 82 17 17 24 FA 9 24 KS [address] ANYI TA BL ET DI 61 09 10 10 3 00 SO Ac CL 44 -1 -1 .0 00 PE ti OF 20 2- 3- 00 00 RS ve EN 10 20 20 57 AC 20 17 17 24 FA 1 23 KS SO LY D DR DR DE SANTIAGO [...] 5 77 CV CE S TA PH KS AR NO MA PH CY EN LL [...] TO E- 84 17 17 97 N NJ 5 15 CO IL MP OC OU [...] 34 0- 8- 00 01 UC ve NJ 59 20 20 04 [place] ED 31 [...] PH AR MA CY #3 01 6 NJ 42 06 07 60 30 00 KE [...] PH AR MA CY #3 01 6 NJ 68 06 07 60 30 00 KE [...] TO E- 84 17 17 35 N NJ 5 14 CO IL MP OC OU [...] PH AR HA CY #3 01 6 NJ 68 05 06 60 30 00 KE [...] TO E- 84 17 17 35 N NJ 5 14 CO IL MP OC OU [...] 17 17 93 FA 87 0 42 KS 5- LY [address] MG UG [...] 17 17 84 E 9 86 CV NJ S OP PH AR 50 MA CY MC G LL SP C, RA Y DB A CV S PH AR MA CY #3 01 6 NJ 68 03 03 60 30 00 KE [...] TO E- 84 17 17 35 N NJ 5 14 CO IL MP OC OU [...] PH AR MA CY #3 01 6 NJ 68 02 03 90 30 00 KE [...] PH AR MA CY #3 01 6 NJ 68 02 03 60 30 00 KE [...] PH AR MA CY #3 01 6 NJ 68 01 02 60 30 00 KE [...] 16 17 22 FA 87 0 66 KS 5- LY [address] MG UG TA BL ET BE 67 12 01 30 10 00 SO Ac NZ 87 -2 -2 .0 00 PE ti ON 70 7- 0- 00 00 RS ve AT 10 20 20 55 AT 60 16 17 19 FA E 5 97 [place] [address] UG CA [...] LL 2. C 5) MG /3 ML NJ 00 12 01 10 5 00 KE [...] 12 01 14 7 00 KE Ac NJ 86 -2 -2 .0 00 NT ti [...] 017 K/mm3 ed monocyt 07:50 e count Blair % = 8.6 % 1.7-9.3 complet 017 [...] SQUARE METERS Comment: If this patient is -Cameroonian, then multiply the Comment: result by 1.210. Serum = 99 74-106 complet or 017 mg/dL ed plasma 07:50 glucose measure ment (mas Serum = 3.6 3.5-5.1 complet potassi 017 mmoL/L ed um 07:50 measure ment Serum = 140 136-145 complet sodium 017 mmoL/L ed measure 07:50 ment Encounters Encounter Start End Date Code Location Performer Type Date [facility] - 7 7 [facility] - 7 7 [facility] 7 7 [facility] - [address] [facility] - 7 7 [facility] - [address] [facility] - 7 7 [facility] - 7 7 [facility] - [address] [facility] - [address] [facility] - 7 7 [facility] - 6 6 [facility] - 6 6 [facility] - 6 6 [facility] - 6 [facility] - [facility] 6 [facility] [address] [facility] [address] [facility] [address] [facility] [address] [facility] - [facility] 6 [facility] 6 [facility] [place] [facility] [address] [facility] [address] [facility] [place] [address] [facility] 5 5 [facility] [place] - [address] [facility] [place] - [address] [facility] - [address] [facility] [place] - 5 5 [facility]
--- OUTSIDE RECORDS SUMMARY | 2017-09-10 19:14 | External Medical Summary Rpt | CCD ---
Author Author , DANIELLA BERWER Address Unknown Phone [email or web address] Team Providers Care Web Press Jogger Name Role Phone [facility], Unavailable Unavailable [facility] STARLA GRESHAM MD, PSC, Unavailable Unavailable STARLA GRESHAM MD, PSC [facility] Unavailable Unavailable H[facility]PITAL, [facility] PHYSICIAN Unavailable Unavailable PRACTICE L, [facility] & Unavailable Unavailable SLEEP CONSU, [facility]ASC[facility] & SLEEP CONSU [facility], Unavailable Unavailable [facility], Unavailable Unavailable [facility] Unavailable Unavailable HOSPITA, [facility] Unavailable Unavailable [facility] Unavailable Unavailable INC, [facility], Unavailable Unavailable [facility] Unavailable Unavailable ASSOCIAT, [facility] KEPLINGER, [facility] Unavailable Unavailable [facility], [facility] Unavailable Unavailable [facility], [facility] Unavailable Unavailable SERV WEAVING MACHINE OPERATOR R, [facility] WEAVING MACHINE OPERATOR R [facility] Unavailable [facility] SHANELL YOO MD Unavailable Unavailable CONSULTING SRV, SHANELL YOO MD CONSULTING [facility] Unavailable Unavailable [facility], [facility] Unavailable Unavailable EMERGENCY PHYS, [facility] TATI KESSLER, Unavailable Unavailable TATI Molina Continuity of Care Document - 11-08-2014 through 2016 Problems Code Diagnosis DOS Provider Status M7541 [facility] OF RIGHT ASSOCIAT SHOULDER M7542 IMPINGEMENT 08-18-2017 [facility] SYNDROME ORTHOPEDIC OF LEFT ASSOCIAT SHOULDER I208 OTHER FORMS 08-05-2017 [facility] GROUP [id number] [facility] [place] 08-05-2017 [facility] COR ART PHYSICIANS W/OTH FORMS GROUP ANGINA PECTORIS R9439 ABNORMAL 08-05-2017 [facility] RESULT OT PHYSICIANS CARDIOVASCU GROUP LR FUNCTION STUDY J320 CHRONIC 07-23-2017 [facility] MAXILLARY PHYSICIAN SINUSITIS PRACTICE L V77113 PAIN IN 07-01-2017 [facility] [place] LEFT KNEE [...] INC DZ CIRC SYSTEM J449 CHRONIC 06-16-2017 [facility] OBSTRUCTIVE PHYSICIANS PULMONARY GROUP DISEASE UNS K219 GASTRO-ESOP 06-16-2017 [facility] H REFLUX PHYSICIANS DISEASE GROUP WITHOUT ESOPHAGITIS G2581 RESTLESS 06-09-2017 [facility] SYNDROME R51 HEADACHE 06-09-2017 [facility] E559 VITAMIN D 06-06-2017 [facility] DEFICIENCY [facility] UNSPECIFIED HOLDINGS E784 OTHER 06-06-2017 [facility] HYPERLIPIDE [facility]ILL[facility]INGS R279 UNSPECIFIED 05-28-2017 [facility] YOO LACK OF COORDINATIO CONSULTING N SRV G4710 HYPERSOMNIA 05-27-2017 [facility]AR & SLEEP UNSPECIFIED CONSU J0101 ACUTE 05-21-2017 [facility] RECURRENT PHYSICIAN MAXILLARY PRACTICE L SINUSITIS Z09 ENC F/U 05-21-2017 [facility] EXAM AFTR PHYSICIAN CMPL TX OTH PRACTICE L THAN MALIG NEOPLSM J321 CHRONIC 05-13-2017 [facility] FRONTAL PHYSICIAN SINUSITIS PRACTICE L J329 CHRONIC 05-13-2017 [facility] UNSPECIFIED R918 OTHER 05-07-2017 [place] [facility] NONSPECIFIC SERV ABNORMAL FOUNDATION FINDING OF LUNG FIELD Z122 ENCOUNTER 05-07-2017 [place] [facility]EN[facility] MALIG [facility] NEOPLASM RESPIR ORGANS X58833 PERSONAL 05-07-2017 [place] [facility] H[facility]ORY OF SERV NICOTINE FOUNDATION DEPENDENCE R300 DYSURIA 04-29-2017 [facility] K73581 MIGRAINE 04-18-2017 [facility] UNS NOT N EMERGENCY INTRACT W/O PHYS STATUS MIGRAINOSUS J411 MUCOPURULEN 04-14-2017 [facility] T CHRONIC HOME BRONCHITIS MEDICAL EQUIPME H43505 AC 04-08-2017 [facility] SUPPURATIVE [facility]INIC OM W/O RUPT EAR DRUM RECUR RT EAR J0140 ACUTE 04-08-2017 [facility] PANSINUSITI CLINIC S UNSPECIFIED R0602 SHORTNESS 03-25-2017 [place] [facility] BREATH SERV [facility]ATION Z23 ENCOUNTER 03-25-2017 [place] [facility] FOR [facility] IMMUNIZATIO FOUNDATION N J3489 OTHER 02-21-2017 [facility] [place] SPECIFIED RADIOLOGY DISORDERS NOSE AND NASAL SINUSES V00301 SPONDYLOSIS 02-18-2017 [facility]/O [facility] MYELOPATH/R INC ADICULOPATH Y LUMB RGN M5136 OTH 02-18-2017 ESTHER HERNÁNDEZ MD, PSC RAL DISC DEGEN LUMBAR REGION M546 PAIN IN 02-12-2017 [facility] [place] THORACIC [facility] SPINE M549 DORSALGIA 02-12-2017 [facility] Z9181 HISTORY OF 02-12-2017 [facility] M4696 UNS 01-21-2017 [facility] INFLAMMATOR MEM HOS[facility] Y INC SPONDYLOPAT HY LUMBAR REGION I98702 OTHER 01-21-2017 [facility] SPONDYLOSIS [facility]OS[facility] LUMBAR INC REGION J0191 ACUTE 01-07-2017 [facility] RECURRENT [facility]INIC SINUSITIS UNSPECIFIED M461 SACROILIITI 12-24-2016 [facility] S NOT MEM HOSP ELSEWHERE INC CLASSIFIED G4700 INSOMNIA 12-18-2016 [facility] R072 PRECORDIAL 12-18-2016 [facility] PAIN [facility] R5383 OTHER 12-18-2016 [facility] V14899 OTHER LONG 12-18-2016 [facility] TERM [facility] DRUG THERAPY Z862 PERSONAL HX 12-18-2016 [facility] BLOOD&BLOOD [facility] FORM ORGN IMMUNE MECH J438 OTHER 12-16-2016 [facility] EMPHYSEMA LAR & SLEEP CONSU R799 ABNORMAL 12-10-2016 [facility] FINDING OF [facility]ILL[facility] BLOOD HOLDINGS CHEMISTRY UNSPECIFIED R05 COUGH 12-04-2016 [facility] [place] [facility] R0689 OTHER 12-04-2016 [facility] ABNORMALITI CLINIC ES OF BREATHING M4726 OTH 11-18-2016 [facility] SPONDYLOSIS [facility] INC W/RADICULOP [...] LOW BACK 07-23-2016 FAROOQ HERNÁNDEZ MD, PSC Z42641 OTHER 06-28-2016 [facility] SPECIFIED [facility] DISORDERS RIGHT KNEE R2241 LOCALIZED 06-28-2016 [facility] [place] [facility]LLING [facility] MASS & LUMP RIGHT LOWER LIMB H9203 OTALGIA 06-26-2016 [facility] BILATERAL PHYSICIAN PRACTICE L H608X3 OTHER 06-18-2016 [facility] OTITIS PHYSICIAN EXTERNA PRACTICE L BILATERAL H6983 OTHER SPEC 06-18-2016 [facility] DISORDERS PHYSICIAN EUSTACHIAN PRACTICE L TUBE BILAT H6590 UNSPECIFIED 06-12-2016 [facility] NONSUPPURAT [place] OTITIS MEDIA UNS EAR R079 CHEST PAIN 06-11-2016 [facility] R202 PARESTHESIA 06-06-2016 [facility] OF SKIN NEUROLOGY H6691 OTITIS 06-04-2016 [facility]IA [facility]IN[facility] UNSPECIFIED RIGHT EAR I6930 UNSPECIFIED 05-16-2016 [facility] SEQUELAE NEUROLOGY OF CEREBRAL INFARCTION M2550 PAIN IN 04-25-2016 [facility] UNSPECIFIED [facility] JOINT HOLDINGS Q58558 ATHEROSCLER 04-15-2016 [facility] SALMON ART EXT CONSULTING INTERMIT SRV JERILYN BILAT Y52590 PAIN IN 04-15-2016 [facility] LEFT LOWER CLINIC LEG R600 LOCALIZED 04-15-2016 [facility] EDEMA [facility]INIC Z8673 PERSONAL HX 04-15-2016 [facility] TIA & CLINIC CEREB INFARCT NO RESID DEFICIT R0789 OTHER CHEST 03-26-2016 [facility] PAIN [facility] HOLDINGS M542 CERVICALGIA 02-20-2016 [facility] M5481 OCCIPITAL 02-15-2016 [facility] NEURALGIA NEUROLOGY M791 MYALGIA 02-15-2016 [facility] H6090 UNSPECIFIED 02-12-2016 [facility] OTITIS CLINIC EXTERNA UNSPECIFIED EAR H6690 OTITIS 01-17-2016 [facility] UNSPECIFIED UNSPECIFIED EAR H5340 UNSPECIFIED 12-29-2015 [facility] VISUAL ANG FIELD DEFECTS H539 UNSPECIFIED 12-25-2015 [facility] VISUAL COMMUNTIY DISTURBANCE HOSPITA I6502 OCCLUSION 12-25-2015 [facility] STENOSIS OF HOSPITA LEFT VERTEBRAL ARTERY Z1231 ENCOUNTER 12-12-2015 [facility] [place] SCREENING RADIOLOGY MAMMO MALIG NEOPLASM BREAST V50591 UNS ACUTE 12-01-2015 [facility] NONINFECTIV CLINIC E OTITIS EXTERNA LEFT EAR H6692 OTITIS 12-01-2015 [facility] UNSPECIFIED LEFT EAR R062 WHEEZING 12-01-2015 [facility] Z1239 ENCOUNTER 12-01-2015 [facility] OTHER CLINIC SCREENING MALIG NEOPLASM BREAST G4489 OTHER 11-20-2015 [facility] HEADACHE MEM HOSP SYNDROME INC Z760 ENCOUNTER 08-31-2015 [facility] FOR ISSUE CLINIC OF REPEAT PRESCRIPTIO N M722 PLANTAR 08-22-2015 [facility] FASCIAL CLINIC FIBROMATOSI S G44669 PAIN IN 08-19-2015 [facility] [place] RIGHT ANKLE RADIOLOGY N82740 PAIN IN 08-19-2015 [facility] [place] LEFT ANKLE RADIOLOGY L24730 PAIN IN 08-19-2015 [facility] [place] RIGHT FOOT RADIOLOGY B44177 PAIN IN 08-19-2015 [facility] [place] LEFT FOOT RADIOLOGY 72070 UNSPECIFIED 06-27-2015 [facility] CEREBRAL SERV ARTERY FOUNDATION OCCLUSION W/INFARCT 496 CHRONIC 06-27-2015 [place] [facility] AIR[place] SERV OBSTRUCTION FOUNDATION NEC V1254 PERSONAL HX 06-22-2015 [facility] TIA & CI COMM[facility]ITY W/O HOSPITAL RESIDUAL DEFICITS 13623 INSOMNIA 06-15-2015 [facility] UNSPECIFIED [facility]INIC 7840 HEADACHE 06-13-2015 [facility] V571 OTHER 06-13-2015 [facility] 7231 CERVICALGIA 05-23-2015 [facility] COMMUNTIY HOSPITA 7238 OTHER 05-16-2015 [facility] SYNDROMES NEUROLOGY AFFECTING CERVICAL REGION 3814 NONSUPPRATV 05-12-2015 [facility] OTITIS BILL[facility] MEDIA NOT HOLDINGS SPEC ACUT/CHRON 7862 COUGH 05-12-2015 [facility] 94794 VOMITING 05-12-2015 [facility] ALONE [facility] 93660 DIARRHEA 05-12-2015 [facility] 75363 OTHER 04-24-2015 [facility] 76198 OTHER 04-24-2015 [facility] SPEECH COMMUNITY DISTURBANCE [facility] V5789 OTHER 04-24-2015 [facility] ION PROCEDURE OTHER V679 UNSPECIFIED 04-17-2015 [facility] FOLLOW-UP CLINIC EXAMINATION 7820 DISTURBANCE 04-13-2015 [facility] [place] OF SKIN RADIOLOGY SENSATION 37688 UNSPEC 04-12-2015 [facility] HEMIP[place]IA [place] AFFECTING NONDOMINANT SIDE 436 ACUTE BUT 04-12-2015 [facility] ILL-DEFINED AMBULANCE SERV WEAVING MACHINE OPERATOR R CEREBROVASC ULAR DISEASE 7802 SYNCOPE AND 04-12-2015 [facility] COLLAPSE N EMERGENCY PHYS 64320 OTHER 04-12-2015 [facility] [place] NONSPECIFIC RADIOLOGY ABNORMAL FINDING OF LUNG FIELD 9953 ALLERGY 04-12-2015 [facility] UNSPECIFIED N EMERGENCY NOT PHYS ELSEWHERE CLASSIFIED 49740 CRAMP OF 04-10-2015 [facility] LIMB [facility] HOLDINGS V5869 LONG-TERM 04-10-2015 [facility] (CURRENT) [facility] USE OF HOLDINGS OTHER MEDICATIONS 6248 OTH SPEC 03-31-2015 [facility] NONINFLAMMA CLINIC TORY DISORDER VULVA&PERIN EUM 2724 OTHER AND 02-27-2015 [facility] UNSPECIFIED [facility] HOLDINGS HYPERLIPIDE [place] 77650 NAUSEA 02-27-2015 [facility] ALONE [facility] 84604 OTHER 02-27-2015 [facility] ILL-DEFINED [facility] CONDITIONS HOLDINGS 90787 UNSPECIFIED 02-09-2015 [facility] WART[facility] 7821 [...] ARTHROPOD PHYS 2720 PURE 12-08-2014 [facility] HYPERCHOLES [facility] 7197 DIFFICULTY 12-08-2014 [facility] 38225 PRECORDIAL 12-08-2014 SH[facility] YOO PAIN CONSULTING SRV 13390 SHORTNESS 12-02-2014 SHANELL YOO OF BREATH CONSULTING SRV V703 OTH GENERAL 12-02-2014 [facility] YOO MEDICAL EXAMINATION CONSULTING ADMIN SRV PURPOSES 7851 PALPITATION 11-23-2014 SHANELL Crandall MD CONSULTING SRV V7612 OTHER 11-22-2014 [facility] [place] [facility] MAMMOGRAM V829 SCREENING 11-22-2014 [facility] CONDITION 45097 OVERWEIGHT 11-21-2014 [facility] 4019 UNSPECIFIED 11-21-2014 [facility] ESSENTIAL [facility] HYPERTENSIO HOLDINGS N 23591 ESOPHAGEAL 11-10-2014 [facility] REFLUX [facility] 35735 POSTNASAL 11-10-2014 [facility] DRIP [facility]INIC 43554 CHEST PAIN 11-08-2014 [facility] UNSPECIFIED [facility]INIC Medications Na ND Rx Da Fi Fi [...] TO E- 84 17 17 97 N TX 5 15 CO IL MP OC OU AI ND NE IN G CR PH EA AR M MA CY TX 00 09 10 10 5 00 SO Ac ED 05 -1 -1 .0 00 PE ti NI 40 2- 3- 00 00 RS ve SO 01 20 20 57 NE 82 17 17 24 FA 9 24 DC [address] DE SANTIAGO TA BL ET DI 61 09 10 10 3 00 SO Ac CL 44 -1 -1 .0 00 PE ti OF 20 2- 3- 00 00 RS ve EN 10 20 20 57 AC 20 17 17 24 FA 1 23 DC SO LY D DR DR DE SANTIAGO [...] CV /2 S 4 PH HR AR HA PA CY TC H LL C, DB A CV S PH AR HA CY #3 01 6 DI 00 08 [...] HA CY #3 01 6 PA 59 08 [...] PH AR HA CY #3 01 6 KL 66 08 [...] AR MA CY #3 01 6 CE 68 07 [...] 5 77 CV CE S TA PH DC AR NO MA PH CY EN LL [...] HA CY #3 01 6 LI 00 07 08 18 23 00 LE Ac DO 11 -2 -1 0. 00 XI ti CA 51 0- 8- 00 00 NG ve IN 46 20 20 0 19 TO E- 84 17 17 97 N TX 5 15 CO IL MP OC OU [...] PH AR HA CY #3 01 6 ME 00 06 07 21 6 00 KE Ac TH 60 -3 -2 .0 00 NT ti YL 34 0- 8- 00 01 UC ve TX 59 20 20 04 [place] ED 31 [...] .0 00 NT ti IN 00 0- 01 UC ve IR 71 20 20 03 [place] 16 17 17 77 30 0 38 CV 0 S MG PH AR CA MA PS CY UL E LL C, DB A CV S PH AR MA CY #3 01 6 TX 42 06 07 60 30 00 KE Ac AM 54 -2 -2 .0 00 NT ti IP 30 2- 1- 01 UC ve EX 70 20 20 02 [place] OL 79 17 17 81 E 0 79 CV 0. S 75 PH AR MG MA CY TA BL LL ET C, DB A CV S PH AR MA CY #3 01 6 TI 00 06 07 90 30 00 KE Ac ZA 37 -1 -2 .0 00 NT ti NI 80 9- 1- 01 UC ve DI 72 20 20 02 [place] NE 41 17 17 10 9 69 CV HC S L PH 4 AR MG MA CY TA BL LL ET C, DB A CV S PH AR MA CY #3 01 6 FL 65 06 07 30 30 00 KE Ac UO 86 -1 -2 .0 00 NT ti XE 20 9- 1- 01 UC ve TI 19 20 20 [...] 00 NT ti ID 20 9- 7- 01 UC ve OG 35 20 20 [...] PH AR HA CY #3 01 6 IS 68 06 [...] PH AR HA CY #3 01 6 VE 00 06 [...] R DB A CV S PH AR HA CY #3 01 6 AT 00 06 [...] PH AR HA CY #3 01 6 TX 68 06 07 60 30 00 KE Ac AM 46 -0 -0 .0 00 NT ti IP 20 8- 7- 00 01 UC ve EX 33 20 20 03 [place] OL 19 17 17 51 E 0 69 CV 0. S 25 PH AR MG MA CY TA BL LL ET C, DB A CV S PH AR HA CY #3 01 6 SP 00 06 [...] TO E- 84 17 17 35 N TX 5 14 CO IL MP OC OU AI ND NE IN G CR PH EA AR M MA CY PA 59 05 06 30 30 [...] PH AR HA CY #3 01 6 TX 68 05 06 60 30 00 KE [...] MA CY #3 01 6 AT 00 05 [...] TO E- 84 17 17 35 N TX 5 14 CO IL MP OC OU [...] 00 NT ti OP 60 8- 2- 00 01 UC ve RA 28 20 [...] 00 NT ti OC 80 2- 5- 00 01 UC ve HL 81 20 20 01 [place] OR 00 17 17 15 OT 5 87 CV HI S AZ PH ID AR E MA 12 CY .5 LL MG C, CP DB A CV S PH AR HA CY #3 01 6 BU 49 04 05 60 30 00 KE Ac SP 88 -1 -0 .0 00 NT ti IR 40 3- 5- 00 00 UC ve ON 72 20 20 99 [place] E 50 17 17 63 HC 1 89 CV L S 7. PH 5 AR MG MA CY TA BL LL ET C, DB A CV S PH AR HA CY #3 01 6 FL 49 04 05 30 30 00 KE Ac UO 88 -1 -0 .0 00 NT ti XE 40 3- 5- 00 00 UC ve TI 87 20 20 98 [place] NE 20 17 17 92 1 09 CV HC S L PH 40 AR MA MG CY CA LL PS C, UL E DB A CV S PH AR MA CY #3 01 6 AT 00 04 04 30 30 00 KE Ac OR 37 -0 -2 .0 00 NT ti VA 83 5- 8- [address] 95 20 [...] NT ti XE 10 3- 8- 00 00 UC ve TI 64 20 [...] 00 NT ti OR 20 5- 8- 00 01 UC ve BI 65 [...] 17 17 93 FA 87 0 42 DC 5- LY [address] MG UG [...] 17 17 84 E 9 86 CV TX S OP PH AR 50 MA CY MC G LL SP C, RA Y DB A CV S PH AR MA CY #3 01 6 TX 68 03 03 60 30 00 KE [...] TO E- 84 17 17 35 N TX 5 14 CO IL MP OC OU [...] PH AR MA CY #3 01 6 TX 68 02 03 90 30 00 KE [...] MA CY #3 01 6 FL 49 02 [...] MA CY #3 01 6 HY 00 02 [...] MA CY #3 01 6 AT 00 02 [...] PH AR MA CY #3 01 6 TX 68 02 03 60 30 00 KE [...] PH AR MA CY #3 01 6 TX 68 01 02 60 30 00 KE [...] 16 17 22 FA 87 0 66 DC 5- LY [address] MG UG TA BL ET BE 67 12 01 30 10 00 SO Ac NZ 87 -2 -2 .0 00 PE ti ON 70 7- 0- 00 00 RS ve AT 10 20 20 55 AT 60 16 17 19 FA E 5 97 DC [address] UG CA [...] LL 2. C 5) MG /3 ML TX 00 12 01 10 5 00 KE [...] 12 01 14 7 00 KE Ac TX 86 -2 -2 .0 00 NT ti [...] .0 00 NT ti IR 40 9- 3 00 UC ve ON 72 20 20 95 [place] E 50 16 17 10 HC 1 71 CV L S 7. PH 5 AR MG MA CY TA BL LL ET C, DB A CV S PH AR MA CY #3 01 6 FL 50 12 01 30 30 00 KE Ac UO 11 -1 -0 .0 00 NT ti XE 10 2- 9 00 UC ve TI 64 20 20 98 [place] NE 80 16 17 69 1 96 CV HC S L PH 20 AR MA MG CY CA LL PS C, UL E DB A CV S PH AR MA CY #3 01 6 PA 59 12 01 30 30 00 KE Ac NT 74 -1 -0 .0 00 NT ti OP 60 4- 9 00 UC ve RA 28 20 20 98 [place] ZO 49 16 17 76 LE 0 29 CV S SO PH D AR DR MA CY 40 LL MG C, TA DB B A CV S PH AR MA CY #3 01 6 Encounters Encounter Start End Date Code Location Performer Type Date [facility] - 7 7 [facility] - 7 7 [facility] - 7 7 [facility] - 7 7 [facility] - 7 7 [facility] - 7 7 [facility] - 7 7 [facility] - 7 7 [facility] - 7 7 [facility] - 7 7 [facility] - 7 7 [facility] - 6 6 [facility] 6 6 [facility] - 6 6 [facility] - 6 6 [facility] - 6 6 [facility] [place] - 6 6 [facility] [place] - 6 6 [facility] 6 [facility] - 6 6 [facility] - 6 6 [facility] - 6 6 [facility] - 6 6 [facility] [place] - 6 6 [facility] - 6 6 [facility] - 6 6 [facility] [place] - 5 5 [facility] [place] - 5 5 [facility] [place] - 5 5 [facility] - 5 5 [facility] [place] - 5 5 [facility] [place] - 5 5 [facility] [place] - 5 5 [facility] [place] - 5 5 [facility]
--- OUTSIDE RECORDS SUMMARY | 2017-09-10 19:14 | External Medical Summary Rpt | CCD ---
Author Author , DANIELLA BREWER Address Unknown Phone [email or web address] Care Team Providers Care Paper Box Maker Name Role Phone [facility], Unavailable Unavailable [facility] STARLA GRESHAM MD, PSC, Unavailable Unavailable STARLA GRESHAM MD, PSC [facility] Unavailable Unavailable HOSPITAL, [facility] PHYSICIAN Unavailable Unavailable PRACTICE L, [facility] & Unavailable Unavailable SLEEP [facility], [facility]ASC[facility] & SLE[facility], Unavailable Unavailable [facility], Unavailable Unavailable [facility] Unavailable Unavailable HOSPITA, [facility], Unavailable Unavailable [facility] Unavailable Unavailable INC, [facility], Unavailable Unavailable [facility] Unavailable Unavailable ASSOCIAT, [facility] KEPLINGER, [facility]PL[facility] Unavailable Unavailable [facility], [facility] Unavailable Unavailable [facility]INGS, [facility] Unavailable Unavailable [facility] INTER[facility], [facility] Unavailable [facility] SHANELL YOO MD Unavailable Unavailable CONSULTING SRV, SHANELL YOO MD CONS[facility]ING [facility] Unavailable Unavailable EQUIPME, [facility] Unavailable Unavailable EMERGENCY PHYS, [facility] TATI KESSLER, Unavailable Unavailable TATI Molina Continuity of Care Document - 11-08-2014 through 2016 Problems Code Diagnosis DOS Provider Status M7541 [facility]18[facility]2017 [facility] OF RIGHT ASSOCIAT SHOULDER M7542 IMPINGEMENT 08-18-2017 [facility] OF LEFT ASSOCIAT SHOULDER I208 OTHER FORMS 08-05-2017 [facility] OF [facility]GINA PHYSICIANS PECTORIS GROUP [id number] ASHD [place] BAND 08-05-2017 [facility] COR ART PHYSICIANS W/OTH FORMS GROUP ANGINA PECTORIS R9439 ABNORMAL 08-05-2017 [facility] RESULT OT PHYSICIANS CARDIOVASCU GROUP LR FUNCTION STUDY J320 CHRONIC 07-23-2017 [facility] MAXILLARY PHYSICIAN SINUSITIS PRACTICE L D08264 PAIN IN 07-01-2017 [facility] [place] LEFT KNEE [...] INC DZ CIRC SYSTEM J449 CHRONIC 06-16-2017 [facility] OBSTRUCTIVE PHYSICIANS PULMONARY GROUP DISEASE UNS K219 GASTRO-ESOP 06-16-2017 [facility] H REFLUX PHYSICIANS DISEASE GROUP WITHOUT ESOPHAGITIS G2581 RESTLESS 06-09-2017 [facility] SYNDROME R51 HEADACHE 06-09-2017 [facility] E559 VITAMIN D 06-06-2017 [facility] [...] 05-07-2017 [facility] NEOPLASM RESPIR ORGANS W21250 PERSONAL 05-07-2017 [facility] NICOTINE [facility] DEPENDENCE R300 DYSURIA 04-29-2017 [facility] Y68617 MIGRAINE 04-18-2017 [facility] UNS NOT N EMERGENCY INTRACT W/O PHYS STATUS MIGRAINOSUS J411 MUCOPURULEN 04-14-2017 [facility] T CHRONIC HOME BRONCHITIS MEDICAL EQUIPME D40724 AC 04-08-2017 [facility] SUPPURATIVE [facility]IN[facility] OM W/O RUPT EAR DRUM RECUR RT EAR J0140 ACUTE 04-08-2017 [facility] PANSINUSITI CLINIC S UNSPECIFIED R0602 SHORTNESS 03-25-2017 [facility] BREATH SERV [facility] Z23 ENCOUNTER 03-25-2017 [facility] IMMUNIZATIO FOUNDATION N J3489 OTHER 02-21-2017 [facility] [place] SPECIFIED RADIOLOGY DISORDERS NOSE AND NASAL SINUSES Y54003 SPONDYLOSIS 02-18-2017 [facility] MYELOPATH/R INC ADICULOPATH Y LUMB RGN M5136 OTH 02-18-2017 ESTHER HERNÁNDEZ MD, PSC RAL DISC DEGEN LUMBAR REGION M546 PAIN IN 02-12-2017 [facility] [place] [facility]ACIC [facility] SPINE M549 DORSALGIA 02-12-2017 [facility] Z9181 HISTORY OF 02-12-2017 [facility] M4696 UNS 01-21-2017 [facility] INFLAMMATOR MEM HOSP Y INC SPONDYLOPAT HY LUMBAR REGION D91477 OTHER 01-21-2017 [facility] SPONDYLOSIS [facility]OS[facility] LUMBAR INC REGION J0191 ACUTE 01-07-2017 [facility] RECURRENT [facility]INIC SINUSITIS UNSPECIFIED M461 SACROILIITI 12-24-2016 [facility] S NOT MEM HOSP ELSEWHERE INC CLASSIFIED G4700 INSOMNIA 12-18-2016 [facility] R072 PRECORDIAL 12-18-2016 [facility] PAIN [facility] R5383 OTHER 12-18-2016 [facility] FATIGUE [facility] H42579 OTHER LONG 12-18-2016 [facility] TERM [facility] DRUG THERAPY Z862 PERSONAL HX 12-18-2016 [facility] FORM ORGN IMMUNE MECH J438 OTHER 12-16-2016 [...] LOW BACK 07-23-2016 FAROOQ HERNÁNDEZ MD, PSC O61806 OTHER 06-28-2016 [facility] SPECIFIED [facility] DISORDERS RIGHT KNEE R2241 LOCALIZED 06-28-2016 [facility] [place] SWELLING RADIOLOGY MASS & LUMP RIGHT LOWER LIMB H9203 OTALGIA 06-26-2016 [facility] BILATERAL PHYSICIAN PRACTICE L H608X3 OTHER 06-18-2016 [facility] OTITIS PHYSICIAN EXTERNA PRACTICE L BILATERAL H6983 OTHER SPEC 06-18-2016 [facility] DISORDERS PHYSICIAN EUSTACHIAN PRACTICE L TUBE BILAT H6590 UNSPECIFIED 06-12-2016 [facility] NONSUPPURAT [place] OTITIS MEDIA UNS EAR R079 CHEST PAIN 06-11-2016 [facility] R202 PARESTHESIA 06-06-2016 [facility] SKIN [facility]UROLOGY H6691 OTITIS 06-04-2016 [facility]IA [facility] UNSPECIFIED RIGHT EAR I6930 UNSPECIFIED 05-16-2016 [facility] OF CEREBRAL INFARCTION M2550 PAIN IN 04-25-2016 [facility] UNSPECIFIED [facility] JOINT HOLDINGS U18045 ATHEROSCLER 04-15-2016 [facility] SALMON ART EXT CONSULTING INTERMIT SRV JERILYN BILAT Q35422 PAIN IN 04-15-2016 [facility] LEFT LOWER CLINIC LEG R600 LOCALIZED 04-15-2016 [facility] EDEMA [facility]IN[facility] Z8673 PERSONAL HX 04-15-2016 [facility] TIA & CLINIC CEREB INFARCT NO RESID DEFICIT R0789 OTHER CHEST 03-26-2016 [facility] PAIN [facility] M542 CERVICALGIA 02-20-2016 [facility] M5481 OCCIPITAL 02-15-2016 [facility] M791 MYALGIA 02-15-2016 [facility] H6090 UNSPECIFIED 02-12-2016 [facility] OTITIS [facility]INIC EXTERNA UNSPECIFIED EAR H6690 OTITIS 01-17-2016 [facility]IA [facility] UNSPECIFIED UNSPECIFIED EAR H5340 UNSPECIFIED 12-29-2015 [facility] VISUAL ANG FIELD DEFECTS H539 UNSPECIFIED 12-25-2015 [facility]ANCE [facility]OSPITA I6502 OCCLUSION 12-25-2015 [facility] STENOSIS OF HOSPITA LEFT VERTEBRAL ARTERY Z1231 ENCOUNTER 12-12-2015 [facility] [place] SCREENING RADIOLOGY MAMMO MALIG NEOPLASM BREAST O62305 UNS ACUTE 12-01-2015 [facility] NONINFECTIV CLINIC E OTITIS EXTERNA LEFT EAR H6692 OTITIS 12-01-2015 [facility]IA [facility] UNSPECIFIED LEFT EAR R062 WHEEZING 12-01-2015 [facility] Z1239 ENCOUNTER 12-01-2015 [facility] OTHER CLINIC SCREENING MALIG NEOPLASM BREAST G4489 OTHER 11-20-2015 [facility] HEADACHE MEM HOSP SYNDROME INC Z760 ENCOUNTER 08-31-2015 [facility] FOR ISSUE CLINIC OF REPEAT PRESCRIPTIO N M722 PLANTAR 08-22-2015 [facility] FASCIAL CLINIC FIBROMATOSI S A19299 PAIN IN 08-19-2015 [facility] [place] RIGHT ANKLE RADIOLOGY V54233 PAIN IN 08-19-2015 [facility] [place] LEFT ANKLE RADIOLOGY I32803 PAIN IN 08-19-2015 [facility] [place] RIGHT FOOT RADIOLOGY J84899 PAIN IN 08-19-2015 [facility] [place] LEFT FOOT RADIOLOG[facility] 48018 UNSPECIFIED 06-27-2015 [facility] CEREBRAL SERV ARTERY [facility] OCCLUSION W/INFARCT 496 CHRONIC 06-27-2015 [facility] OBSTRUCTION [facility] NEC V1254 PERSONAL HX 06-22-2015 [facility] TIA [facility] CI [facility] W/O HOSPITAL RESIDUAL DEFICITS 51121 INSOMNIA 06-15-2015 [facility] UNSPECIFIED CLINIC 7840 HEADACHE 06-13-2015 [facility] V571 OTHER 06-13-2015 [facility] 7231 CERVICALGIA 05-23-2015 [facility] 7238 OTHER 05-16-2015 [facility] SYNDROMES NEUROLOGY AFFECTING CERVICAL REGION 3814 NONSUPPRATV 05-12-2015 [facility] OTITIS [facility] MEDIA NOT HOLDINGS SPEC ACUT/CHRON 7862 COUGH 05-12-2015 [facility] 06900 VOMITING 05-12-2015 [facility] ALONE [facility] 76509 DIARRHEA 05-12-2015 [facility] 29015 OTHER 04-24-2015 [facility] 98885 OTHER 04-24-2015 [facility] SPEECH COMMUNITY DISTURBANCE [facility] V5789 OTHER 04-24-2015 [facility] ION PROCEDURE OTHER V679 UNSPECIFIED 04-17-2015 [facility] FOLLOW-UP CLINIC EXAMINATION 7820 DISTURBANCE 04-13-2015 [facility] [place] OF SKIN RADIOLOGY SENSATION 90802 UNSPEC 04-12-2015 [facility] HEMIP[place]IA [place] AFFECTING NONDOMINANT SIDE 436 ACUTE BUT 04-12-2015 [facility] ILL-DEFINED AMBULANCE SERV HEALTHCARE ADMINISTRATION INTERN R CEREBROVASC ULAR DISEASE 7802 SYNCOPE AND 04-12-2015 [facility] COLLAPSE N EMERGENCY PHYS 15938 OTHER 04-12-2015 [facility] [place] NONSPECIFIC RADIOLOGY ABNORMAL FINDING OF LUNG FIELD 9953 ALLERGY 04-12-2015 [facility] UNSPECIFIED N EMERGENCY NOT PHYS ELSEWHERE CLASSIFIED 30122 CRAMP OF 04-10-2015 [facility] LIMB [facility] V5869 LONG-TERM 04-10-2015 [facility] (CURRENT) [facility] USE OF HOLDINGS OTHER MEDICATIONS 6248 OTH SPEC 03-31-2015 [facility] NONINFLAMMA CLINIC TORY DISORDER VULVA&PERIN EUM 2724 OTHER AND 02-27-2015 [facility] UNSPECIFIED [facility] HYPERLIPIDE LUKE 11277 NAUSEA 02-27-2015 [facility] ALONE [facility] 75918 OTHER 02-27-2015 [facility] ILL-DEFINED [facility] CONDITIONS HOLDINGS 11514 UNSPECIFIED 02-09-2015 [facility] VIRAL [facility] WARTS 7821 [...] ARTHROPOD PHYS 2720 PURE 12-08-2014 [facility] 7197 DIFFICULTY 12-08-2014 [facility] IN WALKING [facility] 32418 PRECORDIAL 12-08-2014 SHANELL YOO PAIN CONSULTING SRV 06555 SHORTNESS 12-02-2014 SHANELL YOO OF BREATH CONSULTING SRV V703 OTH GENERAL 12-02-2014 SHANELL YOO MEDICAL EXAMINATION CONSULTING ADMIN SRV PURPOSES 7851 PALPITATION 11-23-2014 SH[facility] Crandall MD CONSULTING SRV V7612 OTHER 11-22-2014 [facility] [place] SCREENING RADIOLOGY MAMMOGRAM V829 SCREENING 11-22-2014 [facility] UNSPECIFIED [facility]OSPITAL CONDITION 92441 OVERWEIGHT 11-21-2014 [facility] 4019 UNSPECIFIED 11-21-2014 [facility] ESSENTIAL [facility] HYPERTENSIO HOLDINGS N 71711 ESOPHAGEAL 11-10-2014 [facility] REFLUX [facility] 75690 POSTNASAL 11-10-2014 [facility] DRIP [facility]INIC 86616 CHEST PAIN 11-08-2014 [facility] UNSPECIFIED [facility]INIC Medications [...] TO E- 84 17 17 97 N NH 5 15 CO IL MP OC OU AI ND NE IN G CR PH EA AR M MA CY NH 00 09 10 10 5 00 SO Ac ED 05 -1 -1 .0 00 PE ti NI 40 2- 3- 00 00 RS ve SO 01 20 20 57 NE 82 17 17 24 FA 9 24 ID [address] DE SANTIAGO TA BL ET DI 61 09 10 10 3 00 SO Ac CL 44 -1 -1 .0 00 PE ti OF 20 2- 3- 00 00 RS ve EN 10 20 20 57 AC 20 17 17 24 FA 1 23 ID SO LY D DR DR DE SANTIAGO [...] 5 77 CV CE S TA PH ID AR NO MA PH CY EN LL [...] TO E- 84 17 17 97 N NH 5 15 CO IL MP OC OU [...] 34 0- 8- 00 01 UC ve NH 59 20 20 04 [place] ED 31 [...] PH AR MA CY #3 01 6 NH 42 06 07 60 30 00 KE [...] PH AR HA CY #3 01 6 NH 68 06 07 60 30 00 KE [...] TO E- 84 17 17 35 N NH 5 14 CO IL MP OC OU [...] PH AR HA CY #3 01 6 NH 68 05 06 60 30 00 KE [...] TO E- 84 17 17 35 N NH 5 14 CO IL MP OC OU [...] 17 17 93 FA 87 0 42 ID 5- LY [address] MG UG [...] 17 17 84 E 9 86 CV NH S OP PH AR 50 MA CY MC G LL SP C, RA Y DB A CV S PH AR MA CY #3 01 6 NH 68 03 03 60 30 00 KE [...] TO E- 84 17 17 35 N NH 5 14 CO IL MP OC OU [...] PH AR MA CY #3 01 6 NH 68 02 03 90 30 00 KE [...] PH AR MA CY #3 01 6 NH 68 02 03 60 30 00 KE [...] PH AR MA CY #3 01 6 NH 68 01 02 60 30 00 KE [...] 16 17 22 FA 87 0 66 ID 5- LY [address] MG UG TA BL ET BE 67 12 01 30 10 00 SO Ac NZ 87 -2 -2 .0 00 PE ti ON 70 7- 0- 00 00 RS ve AT 10 20 20 55 AT 60 16 17 19 FA E 5 97 ID [address] UG CA [...] LL 2. C 5) MG /3 ML NH 00 12 01 10 5 00 KE [...] 12 01 14 7 00 KE Ac NH 86 -2 -2 .0 00 NT ti [...] End Date Code Location Performer Type Date [facility] 7 [facility] - [facility] 7 [facility] - [facility] 7 [facility] 7 [facility] 7 [facility] - [facility] 7 [facility] [place] - 6 6 [facility] - 6 6 [facility] - [facility] - [facility] 6 [facility] - 6 6 [facility] [place] - 5 5 [facility] [place] - 5 [facility] [place] - 5 5 [facility] - 5 5 [facility] [place] - 5 [facility] [place] [facility] - 5 5 [facility] - 5 5 [facility] T
--- OUTSIDE RECORDS SUMMARY | 2017-09-10 19:16 | External Medical Summary Rpt | CCD ---
Demographics Preferred Language Macanese Marital Status Unknown Jain Affiliation Unknown Race Unknown Ethnic Group Unknown Author Author , DANIELLA BREWER Address Unknown Phone Immunization Unable to retrieve immunization data due to connection failure with Immunization Registry. Please try again later.
--- OUTSIDE RECORDS SUMMARY | 2017-09-10 19:16 | External Medical Summary Rpt | CCD ---
Demographics Preferred Language Anguillan Marital Status Unknown Tenriism Affiliation Unknown Race Unknown Ethnic Group Unknown Author Author , DANIELLA BREWER Address Unknown Phone Immunization Unable to retrieve immunization data due to connection failure with Immunization Registry. Please try again later.
--- NOTE | 2017-09-10 19:32 | Urgent Treatment Center Report ---
History of Present Issue Date/Time Seen by Provider 09/10/171931 Visit Reason Pt arrived:Walked Presenting Problem:PT C/O HEADACHE WITH NECK SWELLING Location if Accident: Onset of symptoms date/time:/ or onset unknown for:MEDICAL HX UNKNOWN Have you (or family members/close friends) recently traveled outside the [place]? N If Yes, where/when: Have you had exposure to infectious disease within the past month? TB? Other? Specify: Patient state that she noticed this morning she was having muscle pain and headache, State that she feels like her muscles in her neck area tight State that it feels like the muscle pain is going down her back State that she is not sure if she is having swelling in her shoulder muscles or if she is having a spasm and it is knotted up ALLERGIES Coded Allergies: alteplase (SWELLING 07/23/16) pregabalin (From LYRICA) (DIZZINESS 07/23/16) shrimp (10/13/16) Home Medications Active Scripts Azithromycin (Zithromycin (Z-HROACE) 250MG Tab) 250 MG PO DAILY #6 TAB Prov: 09/06/17 Albuterol Sulfate (Proair Hfa) 2 PUFFS IH QID #1 INH Prov: 09/06/17 Methylprednisolone (Medrol Dose Horace) 4 MG PO UD #1 HORACE Prov: 09/06/17 Guaifenesin (Mucinex) 1,200 MG PO BID #20 TER Prov: 09/06/17 BENZONATATE (Benzonatate) 100 MG PO TID #15 CAP Prov: 10/13/16 Reported Medications ASPIRIN (Aspirin) 81 MG PO DAILY TIZANIDINE HCL (Tizanidine Hcl 4 Mg Tablet) 4 MG PO PRN PRN PAIN Buspirone Hcl (Buspirone 10MG) 7.5 MG PO BID Pantoprazole Sodium (Pantoprazole 40MG) 40 MG PO DAILY CETIRIZINE HCL (Cetirizine 10MG) 10 MG PO DAILY Fluoxetine Hcl (Fluoxetine 20MG) 40 MG PO DAILY Isosorbide Dinitrate 30 MG PO DAILY Atorvastatin Calcium (Atorvastatin) 40 MG PO DAILY Potassium Chloride (Klor-Con M20) 10 MEQ PO DAILY CLOPIDOGREL BISULFATE (Clopidogrel 75MG) 75 MG PO DAILY Fluticasone Propionate (Flovent Diskus 50MCG) 2 PUFF IH BID History Medical History General CAD? No Angina: No MO: No Hypertension? Yes Hyperlipidemia? Yes CHF? No DVT? No PE? No COPD? Yes Asthma? Yes Anemia? No GERD? Yes Gastric ulcers? No GI Bleed? No Hernia? No Thyroid Problems? No Hypothyroidism? No CVA? Yes Seizures? No Diabetes? No Renal Insuffiency? No UTI? No Stones? No BPH? No GB Disease: No Nephritic Syndrome? No Asplenia? No Hepatitis? No Sickle Cell Disease? No Arthritis? No Migraines? No Cataracts? No Glaucoma? No MRSA? No HIV? No TB? No Anxiety? No Depression? No Cancer? No More? Yes Additional hx: RLS Immunization HX DT/Tetanus 5-10 Years Ago Flu 2015- Flu Season Pneumonia Received In Past Surgical Hx Previous Surgery?Y TONSILS X2 HYSTERECTOMY Family History Family HX Diabetes No CAD No Hypertension No Hyperlipidemia No Cancer No TB No Social History Smoking Hx Smoker: Current Every Day Smoker Tobacco: Yes Type Cigarettes Packs/day 1 1/2 - 2 Packs Alcohol Alcohol: No Review of Systems All Other Systems Reviewed and Negative Musculoskeletal muscle pain, muscle stiffness Psychiatric/Neurological headache Physical Exam Vital Signs Vital Signs Date Time Temp Pulse Resp B/P Pulse O2 O2 Flow FiO2 Ox Delivery Rate 09/10 1949 16 09/10 1902 98.7 90 16 140/71 98 General Appearance normal appearance, WD/WN, no apparent distress Respiratory Status Yes: trachea midline, chest symmetrical. No: respiratory distress. Lung Sounds bilateral: normal breath sounds, lungs clear. Cardiovascular normal exam, regular rate/rhythm, no peripheral edema Neurologic alert, normal exam, oriented x 3 Medical Decision Making LABS/Meds/Orders Pt receiving controlled substance in ED? No Results/Orders Current Medication Orders Sig/Abel Start time Last Medication Dose Route Stop Time Status Admin Ketorolac 0 .STK-MED ONE 09/10 1947 DC Tromethamine .ROUTE Ketorolac 0 .STK-MED ONE 09/10 1946 DC Tromethamine .ROUTE Ketorolac 60 MG ONCE ONE 09/10 1945 DC 09/10 Tromethamine IM 09/10 Progress [facility] Progress Notes Comment Patient state that medication helped with pain patient dc'd home to go lay down Departure Departure Time of Disposition 1951 Disposition DC Home or Self Care(routine) Clinical Impression Primary Impression: Muscle spasm Secondary Impressions: Headache Qualifiers: Headache type: tension-type Headache chronicity pattern: unspecified pattern Intractability: intractable Qualified Code: G44.201 - Tension-type headache, unspecified, intractable Condition STABLE Patient Instructions DI for Headache, DI for Muscle Spasm Additional Instructions Take medication as prescribed FOllow up with family doctor if pain persists REturn if needed *Ibuprofen rachid 6 hours with meal as needed for pain/inflammation *Remember you had a Toradol shot in the clinic today, which is similar to Motrin *Not additional anti-inflammatory like motrin, aleve, advil with the above amount of ibuprofen. You can still take Tylenol every 4 hours as needed if you need something else for pain *Ice 20 minutes every 2 hours for the first 48 hours after the initial injury followed by moist heat every 20 minutes 3-4 times a day to affected area *Muscle relaxer every 8 hours as needed for muscle spasms but remember, it WILL cause drowsiness You cannot take it and drive, operate machinery or care for small children. *Keep this area active, no movement leads to more stiffness, However take it easy and avoid heavy lifting pushing or pulling Discharge Counseling Counseled pt/family regarding diagnosis, medications/RX, home care, follow up needs Prescriptions Current Visit Scripts Cyclobenzaprine Hcl (Flexeril) 10 MG PO TID #15 TAB at 1958
[2017-09-10] MEDS ORDERED: FLEXERIL10 MG PO (19:57)
[2017-09-10 20:00] VITALS: BP 140/71
== END 2017-09-10 20:01 | disposition home or self-care (01) ==
LOC: UTC 18:54
DX: M62.838 Other muscle spasm (principal); G44.201 Tension-type headache, unspecified, intractable; I10 Essential (primary) hypertension; J44.9 Chronic obstructive pulmonary disease, unspecified; Z88.8 Allergy status to other drugs, medicaments and biological substances; Z79.82 Long term (current) use of aspirin

== ENCOUNTER → 2017-09-12 | Outpatient (CLI) | payer MEDICAID ==
[~2017-09-12] MED LIST changes: +FLEXERIL10 MG PO
[2017-09-12 09:20] LABS: LYMPH # 2.5 K/mm3 (0.7-4.5); LYMPH % 27.1 % (10-50.0)
[2017-09-12 09:56] LABS: BUN 12 mg/dL (7-18)
[2017-09-12 10:00] LABS: GFR (ESTIMATED) 104 ML/MIN (59-)
[2017-09-13 05:35] LABS: Folate (Folic Acid) 12.4 ng/mL (>3.0); Vitamin B12 412 pg/mL (211-946)
[2017-09-13 08:36] LABS: RA Latex Turbid. 20.1 IU/mL (0.0-13.9)
[2017-09-15 12:40] LABS: Antinuclear Antibodies, IFA Negative (.); Complement, Total (CH50) >60 U/mL (42-60)
== END ==
LOC: LAB 08:16
PROVIDERS: Nurse Practitioner Family
DX: R53.83 Other fatigue (principal)

== ENCOUNTER → 2017-09-17 | Outpatient (CLI) | payer MEDICAID ==
[2017-09-17 07:40] LABS: FASTING URINE GLUCOSE NEGATIVE
[2017-09-17 10:05] LABS: 2 HR URINE GLUCOSE NEGATIVE mg/ml
== END ==
LOC: LAB 07:05
PROVIDERS: Nurse Practitioner Family
DX: R53.83 Other fatigue (principal)